=== PATIENT | female | born 1985 | race Caucasian/White ===

== ENCOUNTER 2018-03-31 19:11 | Inpatient (IN) | payer MEDICAID ==
[2018-03-31] MEDS ORDERED: Sodium Chloride 0.9% 1,000 ML IV ONE ×3 (19:40→23:24)
[2018-03-31 20:08] LABS: BASO # 0.1 K/uL (0.0-0.2); BASO % 0.3 % (0.0-2.0); HEMOGLOBIN 11.8 g/dL (11.0-16.0); LYMPH # 0.9 K/uL (1.0-4.3); LYMPH % 3.9 % (20.0-40.0); MEAN CELL VOLUME 81.2 fL (81.0-99.0); MEAN CORPUSCULAR HEMOGLOBIN 27.3 pg (27.0-31.0); MEAN CORPUSCULAR HGB CONC 33.6 g/dL (33.0-37.0); MEAN PLATELET VOLUME 8.4 fL (7.2-11.7); MONO # 1.3 K/uL (0.0-0.8); MONO % 5.7 % (0.0-10.0); NEUT # 20.7 K/uL (1.8-7.0); NEUT % 90.1 % (50.0-75.0); PLATELET COUNT 375 K/uL (130-400); RBC 4.33 Mil/uL (3.80-5.20); RED CELL DISTRIBUTION WIDTH 13.3 % (11.5-14.5)
--- NOTE | 2018-03-31 20:10 | C.PDOC ---
History Of Present Illness 33 year old female presents to the ED for evaluation of nausea, vomiting, and diarrhea for the last 4 days. Reports she vomited x2 today, vomited x2 yesterday, loose stool today and yesterday, is unable to tolerate solid foods, and can only tolerate water and lemon. Patient notes her family had the same meals and no one else is sick with similar symptoms. Denies recent travel, fever, and any other associated symptoms. Time Seen by Provider: 03/31/18 19:35 Chief Complaint (Nursing): Abdominal Pain History Per: Patient History/Exam Limitations: no limitations Onset/Duration Of Symptoms: Days Current Symptoms Are (Timing): Still Present Recent travel outside of the [place]: No Past Medical History Reviewed: Historical Data, Nursing Documentation, Vital Signs Vital Signs: Last Vital Signs Temp 98.4 F 03/31/18 19:16 Pulse 110 H 03/31/18 19:16 Resp 18 03/31/18 19:16 BP 107/74 03/31/18 19:16 Pulse Ox 98 03/31/18 19:16 Surgical History: No Surg Hx Family History: States: Unknown Family Hx - Social History Hx Alcohol Use: No Hx Substance Use: No - Immunization History Hx Tetanus Toxoid Vaccination: No Hx Influenza Vaccination: No Hx Pneumococcal Vaccination: No Review Of Systems Except As Marked, All Systems Reviewed And Found Negative. Constitutional: Negative for: Fever, Chills Gastrointestinal: Positive for: Nausea, Vomiting (x4), Diarrhea Physical Exam - Physical Exam Appears: Non-toxic, Other (no apparent distress) Skin: Normal Color, Warm, Dry Head: Atraumatic, Normacephalic Eye(s): bilateral: PERRL Oral Mucosa: Moist Neck: Normal ROM, Supple Chest: Symmetrical, No Deformity Cardiovascular: Rhythm Regular Respiratory: Other (no acute respiratory distress.) Gastrointestinal/Abdominal: Tenderness (belly is vaguely tender.) Extremity: Normal ROM (x4) Neurological/Psych: Oriented x3, Normal Speech, Normal Motor, Normal Sensation Gait: Steady ED Course And Treatment - Laboratory Results Result Diagrams: 03/31/18 19:57 03/31/18 19:57 Lab Interpretation: Abnormal (total bili 2.3, D. Bili 1.5, indirect bili 0.8, NOT c/w Gilbert's, UA neg,) Urine POC: Negative O2 Sat by Pulse Oximetry: 98 (RA) Pulse Ox Interpretation: Normal Reevaluation Time: 23:16 Reassessment Condition: Improved - Physician Consult Information Outcome Of Conversation: 2330: d/w Dr. Ayala, Hospitalist covering uninsured pts, ok to admit. Medical Decision Making Medical Decision Making: Plan: --Blood sent. --Urinalysis --Urine HCG -Given Pepcid, Toradol, and Zofran. formed stool throughout colon on CT no acute pathology no enteritis, nor excessive liquid stool to suspect infectuous diarrhea probably leukocytosis due to vomiting mild elev LFT's but not propotionally majority of indirect bili's so Gilbert's Syndrome not likely 2330: feels better Defer abx no source and feels better, belly benign now Plan: hydrate overnight and repeat labs in AM Disposition Doctor Will See Patient In The: Hospital Counseled Patient/Family Regarding: Studies Performed, Diagnosis - Disposition Disposition: HOME/ ROUTINE Disposition Time: 23:17 Condition: GOOD Forms: [facility] (Citizen Of [place]) - Clinical Impression Clinical Impression: Abdominal pain, Vomiting, Abnormal liver function test - Scribe Statement The provider has reviewed the documentation as recorded by the Scribe (Stephanie Mills) Provider Attestation: All medical record entries made by the Scribe were at my direction and personally dictated by me. I have reviewed the chart and agree that the record accurately reflects my personal performance of the history, physical exam, medical decision making, and the department course for this patient. I have also personally directed, reviewed, and agree with the discharge instructions and disposition.
[2018-03-31 20:11] LABS: HCG,QUALITATIVE URINE NEGATIVE (NEGATIVE)
[2018-03-31 20:15] LABS: SQUAMOUS EPITHIAL 3 /hpf (0-5); URINE BACTERIA FEW (<OCC); URINE BILIRUBIN NEGATIVE (NEGATIVE); URINE BLOOD 2+ (NEGATIVE); URINE CLARITY Hazy (Clear); URINE COLOR Yellow (YELLOW); URINE GLUCOSE (UA) NORMAL (Normal); URINE LEUKOCYTE ESTERASE 2+ Leu/uL (Negative); URINE PROTEIN 2+ mg/dL (NEGATIVE)
[2018-03-31 20:21] LABS: ALBUMIN 4.4 g/dL (3.5-5.0); BLOOD UREA NITROGEN 10 mg/dL (7-17); CALCIUM 9.5 mg/dl (8.6-10.4); GFR NON-AFRICAN AMERICAN > 60; LIPASE 36 U/L (23-300)
[2018-03-31 20:24] LABS: ALT/SGPT 71 U/L (9-52); AST/SGOT 59 U/L (14-36)
[2018-03-31] MEDS ORDERED: Iodixanol 320 MG/ML 100 ML BOTTLE IV ONE (21:22)
[2018-03-31 21:51] LABS: LYMPHOCYTE 7 % (20-40); MONOCYTE 4 % (0-10); NEUTROPHIL 89 % (50-75); PLATELET CLUMPS PRESENT; TOTAL CELLS COUNTED 100
[2018-03-31 21:54] LABS: PLATELET ESTIMATE NORMAL (NORMAL)
[2018-03-31] MEDS ORDERED: Dextrose 5%/0.9% NS 1,000 ML IV ONE (23:26)
--- NOTE | 2018-03-31 23:39 | CP.PCM.HP ---
<Chloe Simmons - Last Filed: 04/01/18 01:12> History of Present Illness - History of Present Illness History of Present Illness: History and Physical - Hospitalist Service CC: Fevers, Nausea/Vomiting HPI: Patient is a 33 year old female with no significant past medical history who presented to the emergency department with subjective fevers and nausea/vomiting for the past 4 days. Patient states that on Wednesday she started experiencing subjective fevers, 2-3 episodes of NBNB vomiting every day. She has been taking paracetamol 500mg at home for the fevers. Epigastric/periumbilical pain started after onset of vomiting. She states that abdominal pain is intermittent in nature and is non-radiating. Pain was 6/10 on pain scale. She was last ate food on Wednesday night when she had godinez and bread. Since then she has only been able to tolerate lemon and water. Patient reports last episode of emesis was 5pm this afternoon. She denies any sick contacts or recent travel. She also reports having 1 episode of watery diarrhea today that was a small amount. Stools prior to this were normal. Currently she denies any fevers, chills, headaches, dizziness, weakness, body aches, changes in vision, chest pain, palpitations, sob, abdominal pain, urinary symptoms, blood in stool, changes in diet. 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 Family History: Mother - Heart problems, CHF; Father - Heart problems, CAD with angioplasty CAR HOP: , LMP 03/03/18, periods are regular and last 3 days, denies any history of fibroids/ovarian cysts Present on Admission - Present on Admission Any Indicators Present on Admission: No Past Patient History - Past Social History Smoking Status: Never Smoked - PSYCHIATRIC Hx Substance Use: No - SURGICAL HISTORY Hx Surgeries: No Meds Allergies/Adverse Reactions: Allergies Allergy/AdvReac Type Severity Reaction Status Date / Time No Known Allergies Allergy Unverified 03/31/18 19:21 Physical Exam - Constitutional Appears: Well, No Acute Distress - Head Exam Head Exam: ATRAUMATIC, NORMAL INSPECTION, NORMOCEPHALIC - Eye Exam Eye Exam: EOMI, Normal appearance. absent: Scleral icterus Pupil Exam: NORMAL ACCOMODATION - ENT Exam ENT Exam: Mucous Membranes Moist - Respiratory Exam Respiratory Exam: Clear to Auscultation Bilateral, NORMAL BREATHING PATTERN. absent: Rales, Rhonchi, Wheezes - Cardiovascular Exam Cardiovascular Exam: REGULAR RHYTHM, +S1, +S2 - GI/Abdominal Exam GI & Abdominal Exam: Normal Bowel Sounds, Soft. absent: Guarding, Rebound, Rigid Additional comments: Mild tenderness in the RUQ, epigastric/periumbilical region to palpation - Extremities Exam Extremities exam: Positive for: full ROM, normal inspection, pedal pulses present. Negative for: calf tenderness - Back Exam Back exam: NORMAL INSPECTION. absent: CVA tenderness (L), CVA tenderness (R) - Neurological Exam Neurological exam: Alert, Oriented x3 - Psychiatric Exam Psychiatric exam: Normal Affect, Normal Mood - Skin Skin Exam: Dry, Normal Color, Warm Results - Vital Signs Recent Vital Signs: Last Vital Signs Temp 98.0 F 03/31/18 23:31 Pulse 77 03/31/18 23:31 Resp 16 03/31/18 23:31 BP 108/65 03/31/18 23:31 Pulse Ox 98 03/31/18 23:33 - Labs Result Diagrams: 03/31/18 19:57 03/31/18 19:57 Labs: Laboratory Results - last 24 hr 03/31/18 03/31/18 03/31/18 19:57 19:57 19:57 WBC 23.0 H RBC 4.33 Hgb 11.8 Hct 35.2 MCV 81.2 MCH 27.3 MCHC 33.6 RDW 13.3 Plt Count 375 MPV 8.4 Neut % (Auto) 90.1 H Lymph % (Auto) 3.9 L Martin % (Auto) 5.7 Eos % (Auto) 0.0 Baso % (Auto) 0.3 Neut # (Auto) 20.7 H Lymph # (Auto) 0.9 L Martin # (Auto) 1.3 H Eos # (Auto) 0.0 Baso # (Auto) 0.1 Neutrophils % (Manual) 89 H Lymphocytes % (Manual) 7 L Monocytes % (Manual) 4 Platelet Estimate Normal Plt Clumps, EDTA Present Sodium 137 Potassium 4.1 Chloride 100 Carbon Dioxide 22 Anion Gap 20 BUN 10 Creatinine 1.0 Est GFR ( Amer) > 60 Est GFR (Non-Af Amer) > 60 Random Glucose 123 H Calcium 9.5 Total Bilirubin 2.3 H Direct Bilirubin AST 59 H ALT 71 H Alkaline Phosphatase 213 H Total Protein 8.7 H Albumin 4.4 Globulin 4.3 H Albumin/Globulin Ratio 1.0 Lipase 36 Urine Color Yellow Urine Clarity Hazy Urine pH 6.0 Ur Specific [place] 1.008 Urine Protein 2+ H Urine Glucose (UA) Normal Urine Ketones Negative Urine Blood 2+ H Urine Nitrate Negative Urine Bilirubin Negative Urine Urobilinogen 4.0 H Ur Leukocyte Esterase 2+ H Urine WBC (Auto) 15 H Urine RBC (Auto) 14 H Ur Squamous Epith Cells 3 Ur Transition Epith Cell < 1 Urine Bacteria Few H Urine HCG, Qual Negative 03/31/18 22:57 WBC RBC Hgb Hct MCV MCH MCHC RDW Plt Count MPV Neut % (Auto) Lymph % (Auto) Martin % (Auto) Eos % (Auto) Baso % (Auto) Neut # (Auto) Lymph # (Auto) Martin # (Auto) Eos # (Auto) Baso # (Auto) Neutrophils % (Manual) Lymphocytes % (Manual) Monocytes % (Manual) Platelet Estimate Plt Clumps, EDTA Sodium Potassium Chloride Carbon Dioxide Anion Gap BUN Creatinine Est GFR ( Amer) Est GFR (Non-Af Amer) Random Glucose Calcium Total Bilirubin Direct Bilirubin 1.5 H AST ALT Alkaline Phosphatase Total Protein Albumin Globulin Albumin/Globulin Ratio Lipase Urine Color Urine Clarity Urine pH Ur Specific [place] Urine Protein Urine Glucose (UA) Urine Ketones Urine Blood Urine Nitrate Urine Bilirubin Urine Urobilinogen Ur Leukocyte Esterase Urine WBC (Auto) Urine RBC (Auto) Ur Squamous Epith Cells Ur Transition Epith Cell Urine Bacteria Urine HCG, Qual Assessment & Plan - Assessment and Plan (Free Text) Assessment: A/P: Patient is a 33 year old female with no significant past medical history who presents with 4 day history of subjective fevers with multiple episodes nausea/vomiting and 1 episode of watery diarrhea. Intractable Nausea and Vomiting likely due to Gastroenteritis (viral etiology) -Stable, afebrile -Will admit for observation -Continue NS @ 100cc/hr -Continue Pepcid 20mg IVP BID -Zofran 4mg Q6H prn nausea -CT abd/pelvis showed formed stool, no acute pathology, no enteritis, nor excessive liquid stool to suspect infectious diarrhea (official report pending) -Obstructive series completed (official report pending) -In light of elevated bilirubin and epigastric tenderness, we will order gallbladder US -Stool leukocytes, ova/parasites, cultures ordered Leukocytosis -WBC elevated at 23 -Could be reactive -Will monitor off antibiotics at this time and repeat labs tomorrow Abnormal UA -UA showing +2 protein, +2 blood, +2 leukocyte esterase, 15 WBC, 15 RBC -F/U repeat UA and Urine culture GI/DVT ppx: -Pepcid 20mg IVP BID -SCDs Plan discussed with Dr Lucy Simmons DO PGY-2 <Reymundo Ayala - Last Filed: 04/01/18 06:43> Results - Vital Signs Recent Vital Signs: Last Vital Signs Temp 101.5 F H 04/01/18 05:25 Pulse 91 H 04/01/18 01:01 Resp 20 04/01/18 01:01 BP 109/76 04/01/18 01:01 Pulse Ox 99 04/01/18 01:01 - Labs Result Diagrams: 03/31/18 19:57 03/31/18 19:57 Labs: Laboratory Results - last 24 hr 03/31/18 03/31/18 03/31/18 19:57 19:57 19:57 WBC 23.0 H RBC 4.33 Hgb 11.8 Hct 35.2 MCV 81.2 MCH 27.3 MCHC 33.6 RDW 13.3 Plt Count 375 MPV 8.4 Neut % (Auto) 90.1 H Lymph % (Auto) 3.9 L Martin % (Auto) 5.7 Eos % (Auto) 0.0 Baso % (Auto) 0.3 Neut # (Auto) 20.7 H Lymph # (Auto) 0.9 L Martin # (Auto) 1.3 H Eos # (Auto) 0.0 Baso # (Auto) 0.1 Neutrophils % (Manual) 89 H Lymphocytes % (Manual) 7 L Monocytes % (Manual) 4 Platelet Estimate Normal Plt Clumps, EDTA Present Sodium 137 Potassium 4.1 Chloride 100 Carbon Dioxide 22 Anion Gap 20 BUN 10 Creatinine 1.0 Est GFR ( Amer) > 60 Est GFR (Non-Af Amer) > 60 Random Glucose 123 H Calcium 9.5 Total Bilirubin 2.3 H Direct Bilirubin AST 59 H ALT 71 H Alkaline Phosphatase 213 H Total Protein 8.7 H Albumin 4.4 Globulin 4.3 H Albumin/Globulin Ratio 1.0 Lipase 36 Urine Color Yellow Urine Clarity Hazy Urine pH 6.0 Ur Specific [place] 1.008 Urine Protein 2+ H Urine Glucose (UA) Normal Urine Ketones Negative Urine Blood 2+ H Urine Nitrate Negative Urine Bilirubin Negative Urine Urobilinogen 4.0 H Ur Leukocyte Esterase 2+ H Urine WBC (Auto) 15 H Urine RBC (Auto) 14 H Ur Squamous Epith Cells 3 Ur Transition Epith Cell < 1 Urine Bacteria Few H Urine HCG, Qual Negative 03/31/18 22:57 WBC RBC Hgb Hct MCV MCH MCHC RDW Plt Count MPV Neut % (Auto) Lymph % (Auto) Martin % (Auto) Eos % (Auto) Baso % (Auto) Neut # (Auto) Lymph # (Auto) Martin # (Auto) Eos # (Auto) Baso # (Auto) Neutrophils % (Manual) Lymphocytes % (Manual) Monocytes % (Manual) Platelet Estimate Plt Clumps, EDTA Sodium Potassium Chloride Carbon Dioxide Anion Gap BUN Creatinine Est GFR ( Amer) Est GFR (Non-Af Amer) Random Glucose Calcium Total Bilirubin Direct Bilirubin 1.5 H AST ALT Alkaline Phosphatase Total Protein Albumin Globulin Albumin/Globulin Ratio Lipase Urine Color Urine Clarity Urine pH Ur Specific [place] Urine Protein Urine Glucose (UA) Urine Ketones Urine Blood Urine Nitrate Urine Bilirubin Urine Urobilinogen Ur Leukocyte Esterase Urine WBC (Auto) Urine RBC (Auto) Ur Squamous Epith Cells Ur Transition Epith Cell Urine Bacteria Urine HCG, Qual Assessment & Plan - Date & Time Date: 04/01/18 (I have seen and examined the patient. I agree with the findings and plan of care as documented by Dr. Simmons. Patient with Nausea and vomiting. Leukocytosis. Possibly secondary to gastroenteritis. Follow up official read for CT and obstruction series. Check gallbladder ultrasound. Symptomatic treatment. Monitor for acute changes.) Time: 06:42 Attending/Attestation - Attestation I have personally seen and examined this patient.: Yes I have fully participated in the care of the patient.: Yes I have reviewed all pertinent clinical information: Yes
[2018-04-01] MEDS: Sodium Chloride 0.9% 1,000 ML IV SCH ×3 (00:40→19:00)
[2018-04-01 01:02] VITALS: RESP 20
[2018-04-01 07:25] LABS: BASO % 0.1 % (0.0-2.0); LYMPH # 0.7 K/uL (1.0-4.3); LYMPH % 4.1 % (20.0-40.0); MEAN CELL VOLUME 79.6 fL (81.0-99.0); MEAN CORPUSCULAR HEMOGLOBIN 27.3 pg (27.0-31.0); MEAN CORPUSCULAR HGB CONC 34.3 g/dL (33.0-37.0); MONO # 0.9 K/uL (0.0-0.8); MONO % 4.9 % (0.0-10.0); NEUT # 15.8 K/uL (1.8-7.0); NEUT % 90.9 % (50.0-75.0); PLATELET COUNT 301 K/uL (130-400); RBC 3.67 Mil/uL (3.80-5.20); RED CELL DISTRIBUTION WIDTH 13.5 % (11.5-14.5); WHITE BLOOD COUNT 17.3 K/uL (4.8-10.8)
[2018-04-01 07:40] LABS: ALB/GLOB RATIO 0.9 (1.0-2.1); ALBUMIN 3.1 g/dL (3.5-5.0); ALT/SGPT 48 U/L (9-52); AST/SGOT 20 U/L (14-36); BLOOD UREA NITROGEN 10 mg/dL (7-17); CALCIUM 8.3 mg/dl (8.6-10.4); GFR NON-AFRICAN AMERICAN > 60
[2018-04-01 08:32] LABS: LYMPHOCYTE 6 % (20-40); MONOCYTE 3 % (0-10); NEUTROPHIL 91 % (50-75); PLATELET ESTIMATE NORMAL (NORMAL); TOTAL CELLS COUNTED 100
[2018-04-01 08:33] LABS: ANISOCYTOSIS SLIGHT; HYPOCHROMIC SLIGHT; POIKILOCYTOSIS SLIGHT
[2018-04-01] MEDS ORDERED: Potassium & Sodium Phosphate PO ONE (10:00)
[2018-04-01] MEDS ORDERED: Enoxaparin 40 mg Syringe SC SCH (10:00)
[2018-04-01 11:13] LABS: VENOUS BLOOD GAS BASE EXCESS -4.5 mmol/L (0.0-2.0); VENOUS BLOOD GAS PCO2 31 mmHg (40-60); VENOUS BLOOD GAS PO2 51 mm/Hg (30-55)
--- NOTE | 2018-04-01 11:14 | US ---
Date of service: 04/01/2018 HISTORY: abdominal pain, N/V COMPARISON: CT abdomen and pelvis with IV contrast performed 03/31/18 TECHNIQUE: Sonographic evaluation of the right upper quadrant of the abdomen. FINDINGS: LIVER: Measures 14.7 cm in length and appears unremarkable. No focal hepatic mass identified. Main portal vein appears patent with normal directional flow. No intrahepatic bile duct dilatation. GALLBLADDER: No gallstones. No gallbladder wall thickening or pericholecystic edema. Negative sonographic Oliver's sign as assessed by the customer care voice consultant. COMMON BILE DUCT: Measures 3 mm. PANCREAS: Not well-visualized. RIGHT KIDNEY: Measures 11.2 x 5.0 x 4.8 cm. AORTA: Limited visualization appears grossly unremarkable. IVC: Limited visualization appears grossly unremarkable. OTHER FINDINGS: None . IMPRESSION: Unremarkable right upper quadrant ultrasound with findings as above.
--- NOTE | 2018-04-01 11:35 | CT ---
Date of service: 03/31/2018 PROCEDURE: CT Abdomen and Pelvis with contrast HISTORY: diarrhea, colitis COMPARISON: Gallbladder ultrasound performed 04/01/18 TECHNIQUE: Contrast dose: 100 mL Visipaque IV Radiation dose: Total exam DLP = 215.72 mGy-cm. This CT exam was performed using one or more of the following dose reduction techniques: Automated exposure control, adjustment of the mA and/or kV according to patient size, and/or use of iterative reconstruction technique. FINDINGS: LOWER THORAX: No visible consolidation, pleural effusion, or pneumothorax. LIVER: Mild hypodensity adjacent to the falciform ligament, likely focal fat. GALLBLADDER AND BILE DUCTS: Unremarkable. PANCREAS: Unremarkable. SPLEEN: Unremarkable. ADRENALS: Unremarkable. KIDNEYS AND URETERS: Bilateral regions of diminished enhancement are identified involving bilateral upper poles as well as left lower pole kidney which may reflect pyelonephritis. Differential considerations include sequela of vascular insults/infarct or infiltrating process. No hydronephrosis or obstructing calculus identified. VASCULATURE: No aortic aneurysm. BOWEL: Stomach is nondistended. Lack of oral contrast limits evaluation for bowel pathology. Bowel loops appear within normal limits of caliber without evidence of obstruction. APPENDIX: The appendix appears within normal limits of caliber. No secondary signs of acute appendicitis. PERITONEUM: No significant free fluid. No definite free air. LYMPH NODES: No bulky adenopathy identified. BLADDER: Mild urinary bladder wall thickening. Recommend correlation with urinalysis. REPRODUCTIVE: Unremarkable. BONES: No acute osseous abnormality is detected. OTHER FINDINGS: None. IMPRESSION: Bilateral regions of diminished enhancement are identified involving bilateral upper poles as well as left lower pole kidney which may reflect pyelonephritis. Differential considerations include sequela of vascular insults/infarct or infiltrating process. Mild urinary bladder wall thickening. Recommend correlation with urinalysis. Preliminary impression was provided by [employer]. Findings discussed with MARVA Hicks on 04/01/18 at 11:27 a.m.
--- NOTE | 2018-04-01 11:42 | RAD ---
Date of service: 03/31/2018 PROCEDURE: Radiographs of the chest and abdomen (obstructive series) HISTORY: abd pain COMPARISON: CT abdomen and pelvis with contrast performed 03/31/18 TECHNIQUE: AP radiograph of the chest, with upright and supine radiographs of the abdomen. FINDINGS: CHEST: Heart size appears within normal limits. No focal consolidation, significant pleural effusion, or definite pneumothorax identified. Please note that chest x-ray has limited sensitivity for the detection of pulmonary masses. ABDOMEN AND PELVIS: Bowel loops appear within normal limits of caliber without evidence of obstruction. No definite free air. No acute osseous abnormality is detected. IMPRESSION: No focal consolidation. Nonobstructive bowel gas pattern.
[2018-04-01] MEDS: Potassium & Sodium Phosphate PO SCH ×2 (11:54→17:30)
[2018-04-01] MEDS: metroNIDAZOLE IV 500 mg/100 ml 500 MG/100 ML BAG IVPB SCH ×2 (12:18→19:12)
--- NOTE | 2018-04-01 12:39 | RAD ---
Date of service: 04/01/2018 HISTORY: r/o infiltrate COMPARISON: No prior. FINDINGS: LUNGS: No active pulmonary disease. PLEURA: No significant pleural effusion identified, no pneumothorax apparent. CARDIOVASCULAR: Normal. OSSEOUS STRUCTURES: No significant abnormalities. VISUALIZED UPPER ABDOMEN: Normal. OTHER FINDINGS: None. IMPRESSION: No active disease.
[2018-04-01 12:59] LABS: HEPATITIS B SURFACE AG Negative (NEGATIVE)
[2018-04-01 13:04] LABS: HEPATITIS A IGM NEGATIVE (NEGATIVE); HEPATITIS B CORE AB NEGATIVE (NEGATIVE)
[2018-04-01 13:16] LABS: HEPATITIS C ANTIBODY NEGATIVE (NEGATIVE)
--- NOTE | 2018-04-01 13:44 | CP.PCM.CON ---
History of Present Illness - History of Present Illness History of Present Illness: GI service consult CC: fever/vomiting HPI: previously healthy 33 year old woman presents with 3 day history of vomiting and fevers. Denies diarrhea or blood in stool. Denies dysuria, myalgias, arthralgias. Symptoms began [address] and sonogram were essentially unremarkable. patient feels improved today.t had eaten food from outside the home. No other contacts got ill. Developed upper abdominal pain after vomiting excessively. LFTs were initially elevated, and are trending to normal. Review of Systems - Constitutional Constitutional: Fever - EENT Eyes: absent: Change in Vision - Cardiovascular Cardiovascular: absent: Chest Pain - Respiratory Respiratory: absent: Cough, Dyspnea - Gastrointestinal Gastrointestinal: Abdominal Pain, Vomiting. absent: Loose Stools, Melena - Genitourinary Genitourinary: absent: Change in Urinary Stream, Difficulty Urinating, Dysuria, Urinary Frequency - Musculoskeletal Musculoskeletal: absent: Back Pain, Muscle Cramps - Integumentary Integumentary: absent: Jaundice - Neurological Neurological: absent: Weakness - Psychiatric Psychiatric: absent: Mood Swings Past Patient History - Past Medical History & Family History Past Medical History?: No - Past Social History Smoking Status: Never Smoked - CARDIAC Hx Cardiac Disorders: No - PULMONARY Hx Respiratory Disorders: No - NEUROLOGICAL Hx Neurological Disorder: No - HEENT Hx HEENT Problems: No - RENAL Hx Chronic Kidney Disease: No - ENDOCRINE/METABOLIC Hx Endocrine Disorders: No - HEMATOLOGICAL/ONCOLOGICAL Hx Blood Disorders: No - INTEGUMENTARY Hx Dermatological Problems: No - MUSCULOSKELETAL/RHEUMATOLOGICAL Hx Musculoskeletal Disorders: No Hx Falls: No - GASTROINTESTINAL Hx Gastrointestinal Disorders: No - GENITOURINARY/GYNECOLOGICAL Hx Genitourinary Disorders: No - PSYCHIATRIC Hx Substance Use: No - SURGICAL HISTORY Hx Surgeries: No - ANESTHESIA Hx Anesthesia: Yes Hx Anesthesia Reactions: No Meds Allergies/Adverse Reactions: Allergies Allergy/AdvReac Type Severity Reaction Status Date / Time No Known Allergies Allergy Unverified 03/31/18 19:21 - Medications Medications: Current Medications Famotidine (Pepcid) 20 mg IVP BID FOR[facility], 1928–1983 Last Admin: 04/01/18 09:50 Dose: 20 mg Sodium Chloride (Sodium Chloride 0.9%) 1,000 mls @ 100 mls/hr IV .Q10H FOR[facility]LY [facility], [facility]–1983 Last Admin: 04/01/18 09:50 Dose: 100 mls/hr Piperacillin Sod/Tazobactam (Sod 3.375 gm/ Sodium Chloride) 100 mls @ 200 mls/hr IVPB Q6H YRN; Protocol Metronidazole (Flagyl) 500 mg in 100 mls @ 100 mls/hr IVPB Q8H YRN; Protocol Last Admin: 04/01/18 12:18 Dose: 100 mls/hr Ondansetron HCl (Zofran Inj) 4 mg IVP Q6H PRN PRN Reason: Nausea/Vomiting Last Admin: 04/01/18 09:54 Dose: 4 mg Pneumococcal Polyvalent Vaccine (Pneumovax 23 Vaccine) 0.5 ml IM .ONCE ONE Stop: 04/03/18 10:01 Potassium Phos/Sodium Phos (Neutra-Phos) 1 pkt PO TIDAC YRN Stop: 04/02/18 07:31 Last Admin: 04/01/18 11:54 Dose: 1 pkt Physical Exam - Constitutional Appears: Well - Head Exam Head Exam: NORMOCEPHALIC - Eye Exam Eye Exam: absent: Scleral icterus - ENT Exam ENT Exam: Mucous Membranes Moist - Neck Exam Neck exam: Positive for: Normal Inspection - Respiratory Exam Respiratory Exam: Clear to Auscultation Bilateral - Cardiovascular Exam Cardiovascular Exam: REGULAR RHYTHM - GI/Abdominal Exam GI & Abdominal Exam: Soft. absent: Guarding, Mass, Organomegaly, Rebound, Tenderness - Rectal Exam Rectal Exam: Deferred - Extremities Exam Extremities exam: Positive for: normal inspection - Back Exam Back exam: absent: CVA tenderness (L), CVA tenderness (R), NORMAL INSPECTION, paraspinal tenderness - Neurological Exam Neurological exam: Alert, Oriented x3 - Psychiatric Exam Psychiatric exam: Normal Affect, Normal Mood - Skin Skin Exam: Normal Color Results - Vital Signs Recent Vital Signs: Last Vital Signs Temp 98.0 F 04/01/18 08:00 Pulse 90 04/01/18 08:00 Resp 20 04/01/18 08:00 BP 95/64 L 04/01/18 08:00 Pulse Ox 97 04/01/18 08:00 - Labs Result Diagrams: 04/01/18 06:51 04/01/18 06:51 Labs: Laboratory Results - last 24 hr 03/31/18 03/31/18 03/31/18 19:57 19:57 19:57 WBC 23.0 H RBC 4.33 Hgb 11.8 Hct 35.2 MCV 81.2 MCH 27.3 MCHC 33.6 RDW 13.3 Plt Count 375 MPV 8.4 Neut % (Auto) 90.1 H Lymph % (Auto) 3.9 L [place] % (Auto) 5.7 Eos % (Auto) 0.0 Baso % (Auto) 0.3 Neut # (Auto) 20.7 H Lymph # (Auto) 0.9 L [place] # (Auto) 1.3 H Eos # (Auto) 0.0 Baso # (Auto) 0.1 Neutrophils % (Manual) 89 H Lymphocytes % (Manual) 7 L Monocytes % (Manual) 4 Platelet Estimate Normal Plt Clumps, EDTA Present Hypochromasia (manual) Poikilocytosis (manual Anisocytosis (manual) pO2 VBG pH VBG pCO2 VBG HCO3 VBG Total CO2 VBG O2 Sat (Calc) VBG Base Excess VBG Potassium Glucose Lactate Sodium 137 Potassium 4.1 Chloride 100 Carbon Dioxide 22 Anion Gap 20 BUN 10 Creatinine 1.0 Est GFR ( Amer) > 60 Est GFR (Non-Af Amer) > 60 Random Glucose 123 H Calcium 9.5 Phosphorus Magnesium Total Bilirubin 2.3 H Direct Bilirubin AST 59 H ALT 71 H Alkaline Phosphatase 213 H Total Protein 8.7 H Albumin 4.4 Globulin 4.3 H Albumin/Globulin Ratio 1.0 Lipase 36 Procalcitonin Venous Blood Potassium Urine Color Yellow Urine Clarity Hazy Urine pH 6.0 Ur Specific [place] 1.008 Urine Protein 2+ H Urine Glucose (UA) Normal Urine Ketones Negative Urine Blood 2+ H Urine Nitrate Negative Urine Bilirubin Negative Urine Urobilinogen 4.0 H Ur Leukocyte Esterase 2+ H Urine WBC (Auto) 15 H Urine RBC (Auto) 14 H Ur Squamous Epith Cells 3 Ur Transition Epith Cell < 1 Urine Bacteria Few H Urine HCG, Qual Negative Acetaminophen Hepatitis A IgM Ab Hep Bs Antigen Hep B Core IgM Ab Hepatitis C Antibody HIV 1&2 Antibody Screen 03/31/18 04/01/18 04/01/18 22:57 06:51 06:51 WBC 17.3 H RBC 3.67 L Hgb 10.0 L Hct 29.2 L MCV 79.6 L MCH 27.3 MCHC 34.3 RDW 13.5 Plt Count 301 MPV 9.0 Neut % (Auto) 90.9 H Lymph % (Auto) 4.1 L [place] % (Auto) 4.9 Eos % (Auto) 0.0 Baso % (Auto) 0.1 Neut # (Auto) 15.8 H Lymph # (Auto) 0.7 L [place] # (Auto) 0.9 H Eos # (Auto) 0.0 Baso # (Auto) 0.0 Neutrophils % (Manual) 91 H Lymphocytes % (Manual) 6 L Monocytes % (Manual) 3 Platelet Estimate Normal Plt Clumps, EDTA Hypochromasia (manual) Slight Poikilocytosis (manual Slight Anisocytosis (manual) Slight pO2 VBG pH VBG pCO2 VBG HCO3 VBG Total CO2 VBG O2 Sat (Calc) VBG Base Excess VBG Potassium Glucose Lactate Sodium 140 Potassium 3.6 Chloride 109 H Carbon Dioxide 18 L Anion Gap 17 BUN 10 Creatinine 0.9 Est GFR ( Amer) > 60 Est GFR (Non-Af Amer) > 60 Random Glucose 98 Calcium 8.3 L Phosphorus 1.0 L* Magnesium 2.2 Total Bilirubin 1.1 Direct Bilirubin 1.5 H AST 20 ALT 48 Alkaline Phosphatase 153 H D Total Protein 6.4 Albumin 3.1 L D Globulin 3.3 Albumin/Globulin Ratio 0.9 L Lipase Procalcitonin Venous Blood Potassium Urine Color Urine Clarity Urine pH Ur Specific [place] Urine Protein Urine Glucose (UA) Urine Ketones Urine Blood Urine Nitrate Urine Bilirubin Urine Urobilinogen Ur Leukocyte Esterase Urine WBC (Auto) Urine RBC (Auto) Ur Squamous Epith Cells Ur Transition Epith Cell Urine Bacteria Urine HCG, Qual Acetaminophen Hepatitis A IgM Ab Hep Bs Antigen Hep B Core IgM Ab Hepatitis C Antibody HIV 1&2 Antibody Screen 04/01/18 04/01/18 04/01/18 06:51 11:08 11:39 WBC RBC Hgb Hct MCV MCH MCHC RDW Plt Count MPV Neut % (Auto) Lymph % (Auto) [place] % (Auto) Eos % (Auto) Baso % (Auto) Neut # (Auto) Lymph # (Auto) [place] # (Auto) Eos # (Auto) Baso # (Auto) Neutrophils % (Manual) Lymphocytes % (Manual) Monocytes % (Manual) Platelet Estimate Plt Clumps, EDTA Hypochromasia (manual) Poikilocytosis (manual Anisocytosis (manual) pO2 51 VBG pH 7.40 VBG pCO2 31 L VBG HCO3 21.1 VBG Total CO2 20.2 L VBG O2 Sat (Calc) 92.5 H VBG Base Excess -4.5 L VBG Potassium 3.5 L Glucose 95 Lactate 0.8 Sodium 141.0 Potassium Chloride 115.0 H Carbon Dioxide Anion Gap BUN Creatinine Est GFR ( Amer) Est GFR (Non-Af Amer) Random Glucose Calcium Phosphorus Magnesium Total Bilirubin Direct Bilirubin AST ALT Alkaline Phosphatase Total Protein Albumin Globulin Albumin/Globulin Ratio Lipase Procalcitonin 12.85 H Venous Blood Potassium 3.5 L Urine Color Urine Clarity Urine pH Ur Specific [place] Urine Protein Urine Glucose (UA) Urine Ketones Urine Blood Urine Nitrate Urine Bilirubin Urine Urobilinogen Ur Leukocyte Esterase Urine WBC (Auto) Urine RBC (Auto) Ur Squamous Epith Cells Ur Transition Epith Cell Urine Bacteria Urine HCG, Qual Acetaminophen Hepatitis A IgM Ab Negative Hep Bs Antigen Negative Hep B Core IgM Ab Negative Hepatitis C Antibody Negative HIV 1&2 Antibody Screen 04/01/18 04/01/18 11:39 11:39 WBC RBC Hgb Hct MCV MCH MCHC RDW Plt Count MPV Neut % (Auto) Lymph % (Auto) [place] % (Auto) Eos % (Auto) Baso % (Auto) Neut # (Auto) Lymph # (Auto) [place] # (Auto) Eos # (Auto) Baso # (Auto) Neutrophils % (Manual) Lymphocytes % (Manual) Monocytes % (Manual) Platelet Estimate Plt Clumps, EDTA Hypochromasia (manual) Poikilocytosis (manual Anisocytosis (manual) pO2 VBG pH VBG pCO2 VBG HCO3 VBG Total CO2 VBG O2 Sat (Calc) VBG Base Excess VBG Potassium Glucose Lactate Sodium Potassium Chloride Carbon Dioxide Anion Gap BUN Creatinine Est GFR ( Amer) Est GFR (Non-Af Amer) Random Glucose Calcium Phosphorus Magnesium Total Bilirubin Direct Bilirubin AST ALT Alkaline Phosphatase Total Protein Albumin Globulin Albumin/Globulin Ratio Lipase Procalcitonin Venous Blood Potassium Urine Color Urine Clarity Urine pH Ur Specific [place] Urine Protein Urine Glucose (UA) Urine Ketones Urine Blood Urine Nitrate Urine Bilirubin Urine Urobilinogen Ur Leukocyte Esterase Urine WBC (Auto) Urine RBC (Auto) Ur Squamous Epith Cells Ur Transition Epith Cell Urine Bacteria Urine HCG, Qual Acetaminophen < 10.0 L Hepatitis A IgM Ab Hep Bs Antigen Hep B Core IgM Ab Hepatitis C Antibody HIV 1&2 Antibody Screen Negative Assessment & Plan (1) Gastroenteritis Assessment and Plan: Check stool studies IV hydration Will follow Status: Acute (2) Abnormal liver function test Assessment and Plan: Due to underlying gastroenteritis most likely. Gradual resolution is anticipated. Acute Hepatitis profile negative Status: Acute - Date & Time Date: 04/01/18 Time: 13:57
[2018-04-01] MEDS: Piperacillin/Tazobact 3.375 GM in Sodium Chloride 100 ML IVPB SCH ×2 (14:06→17:32)
--- NOTE | 2018-04-01 21:23 | CP.PCM.PN ---
<Adolfo Dominguez - Last Filed: 04/01/18 21:23> Subjective - Date & Time of Evaluation Date of Evaluation: 04/01/18 Time of Evaluation: 09:15 - Subjective Subjective: Medicine Progress Note for Hospitalist Service Pt seen and examined at bedside this am. Denies any acute complaints, resting comfortably in bed. Reports sleeping well overnight. Denies fever/chills. Denies further episodes of nausea/vomiting since admission. Denies suprapubic pain, low back pain, dysuria, urinary frequency, burning with urination, abd pain, or ot her symptoms. Has been able to tolerate water without concerns. No acute events reported overnight. Objective - Vital Signs/Intake and Output Vital Signs (last 24 hours): Temp Pulse Resp BP Pulse Ox 98.0 F 110 H 20 110/77 99 04/01/18 16:24 04/01/18 15:00 04/01/18 15:00 04/01/18 15:00 04/01/18 15:00 - Medications Medications: Current Medications Acetaminophen (Tylenol 325mg Tab) 650 mg PO Q4H PRN PRN Reason: Fever >100.4 F Last Admin: 04/01/18 15:24 Dose: 650 mg Famotidine (Pepcid) 20 mg IVP BID YRN Last Admin: 04/01/18 17:30 Dose: 20 mg Sodium Chloride (Sodium Chloride 0.9%) 1,000 mls @ 100 mls/hr IV .Q10H YRN Last Admin: 04/01/18 09:50 Dose: 100 mls/hr Piperacillin Sod/Tazobactam (Sod 3.375 gm/ Sodium Chloride) 100 mls @ 200 mls/hr IVPB Q6H YRN; Protocol Last Admin: 04/01/18 17:32 Dose: 200 mls/hr Ondansetron HCl (Zofran Inj) 4 mg IVP Q6H PRN PRN Reason: Nausea/Vomiting Last Admin: 04/01/18 15:29 Dose: 4 mg Pneumococcal Polyvalent Vaccine (Pneumovax 23 Vaccine) 0.5 ml IM .ONCE ONE Stop: 04/03/18 10:01 Potassium Phos/Sodium Phos (Neutra-Phos) 1 pkt PO TIDAC YRN Stop: 04/02/18 07:31 Last Admin: 04/01/18 17:30 Dose: 1 pkt - Labs Labs: 04/01/18 06:51 04/01/18 06:51 - Constitutional Appears: Non-toxic, No Acute Distress, Younger Than Stated Age - Head Exam Head Exam: ATRAUMATIC, NORMOCEPHALIC - Eye Exam Eye Exam: EOMI, Normal appearance, PERRL - ENT Exam ENT Exam: Mucous Membranes Moist - Neck Exam Neck Exam: Full ROM, Normal Inspection. absent: Lymphadenopathy - Respiratory Exam Respiratory Exam: Clear to Ausculation Bilateral, NORMAL BREATHING PATTERN. absent: Rales, Rhonchi, Wheezes, Respiratory Distress - Cardiovascular Exam Cardiovascular Exam: REGULAR RHYTHM, +S1, +S2. absent: Gallop, Rubs, Murmur - GI/Abdominal Exam GI & Abdominal Exam: Soft, Normal Bowel Sounds. absent: Distended, Firm, Guarding, Rigid, Tenderness, Organomegaly, Rebound Additional comments: Negative CVA tenderness b/l, no suprapubic tenderness - Extremities Exam Extremities Exam: Full ROM, Normal Capillary Refill, Normal Inspection. absent: Calf Tenderness, Joint Swelling, Pedal Edema - Back Exam Back Exam: Full ROM. absent: CVA tenderness (L), CVA tenderness (R) - Neurological Exam Neurological Exam: Alert, Awake, CN II-XII Intact, Oriented x3. absent: Motor Sensory Deficit - Psychiatric Exam Psychiatric exam: Normal Affect, Normal Mood - Skin Skin Exam: Dry, Intact, Normal Color, Warm Assessment and Plan - Assessment and Plan (Free Text) Assessment: 33 female with no significant PMhx admitted for sepsis likely 2/2 bilateral pyelonephritis. Plan: Sepsis 2/2 B/l pyelonephritis Stable, spiking temps, continue to trend Tylenol prn for fevers; LFTs trending down to wnl today C/w IVF hydration Acetaminophen level neg CT abd/pelvis on admission demonstrated B/l pyelonephritis, bladder wall thickening/cystitis RUQ U/s neg for acute findings Abd XR neg for acute findings Started Zosyn 3.375 g q 6 h Elevated bili wnl this am Lipase wnl Hepatitis panel wnl HIV test ordered, f/u results Procalcitonin elevated, f/u repeat level in 48 hrs Leukocytosis trending down to 17 today VBG wnl, pt not acidotic, lactate wnl U/a demonstrated 2+ protein, 2+ blood, 2+ leukocyte esterase, 15 WBC, 15 RBC Urine cx pending Blood cxs pending Pt admitted that she started her menstrual cycle today, currently denies symptoms R/o gastroenteritis as etiology Stool leukocytes, ova/parasites, cxs pending Giardia Ag ordered, f/u results GI consulted (Dr. Marcos), recs appreciated, agrees with current mgmt Hypophosphatemia - Phosphorus level of 1 today, s/p replacement, continue to monitor Diet: liquid, advance as tolerated GI ppx: Pepcid 20 mg IVP bid DVT ppx: SCDs Dispo: Pt being treated for sepsis 2/2 b/l pyelonephritis necessitating inpatient treatment with IV antibiotics, will continue to monitor clinically. Pt seen, examined with, and plan discussed with Dr. Wilson, attending. Adolfo Dominguez DO PGY-1, [employer] Supervisor Pager #[phone] <Norma Wilson V - Last Filed: 04/01/18 22:41> Objective - Vital Signs/Intake and Output Vital Signs (last 24 hours): Temp Pulse Resp BP Pulse Ox 98.0 F 110 H 20 110/77 99 04/01/18 16:24 04/01/18 15:00 04/01/18 15:00 04/01/18 15:00 04/01/18 15:00 - Medications Medications: Current Medications Acetaminophen (Tylenol 325mg Tab) 650 mg PO Q4H PRN PRN Reason: Fever >100.4 F Last Admin: 04/01/18 15:24 Dose: 650 mg Famotidine (Pepcid) 20 mg IVP BID YRN Last Admin: 04/01/18 17:30 Dose: 20 mg Sodium Chloride (Sodium Chloride 0.9%) 1,000 mls @ 100 mls/hr IV .Q10H YRN Last Admin: 04/01/18 09:50 Dose: 100 mls/hr Piperacillin Sod/Tazobactam (Sod 3.375 gm/ Sodium Chloride) 100 mls @ 200 mls/hr IVPB Q6H YRN; Protocol Last Admin: 04/01/18 17:32 Dose: 200 mls/hr Ondansetron HCl (Zofran Inj) 4 mg IVP Q6H PRN PRN Reason: Nausea/Vomiting Last Admin: 04/01/18 15:29 Dose: 4 mg Pneumococcal Polyvalent Vaccine (Pneumovax 23 Vaccine) 0.5 ml IM .ONCE ONE Stop: 04/03/18 10:01 Potassium Phos/Sodium Phos (Neutra-Phos) 1 pkt PO TIDAC YRN Stop: 04/02/18 07:31 Last Admin: 04/01/18 17:30 Dose: 1 pkt - Labs Labs: 04/01/18 06:51 04/01/18 06:51 Attending/Attestation - Attestation I have personally seen and examined this patient.: Yes I have fully participated in the care of the patient.: Yes I have reviewed all pertinent clinical information, including history, physical exam and plan: Yes Notes (Text): Patient seen, examined, and case discussed with medical scientist. patient noted to be febrile, leukocytosis, unclear source of etiology. however there is abnormal UA, elevated procalcitonin for suspected bacterial origin due to sepsis. VBG shock noted for normal lactate; therefore code sepsis was not called. Patient started on Zosyn and Flagyl for antibiotic coverage. CT scan noted for pyleonephritis. f/u cultures. Assessment/Plan 1) Sepsis 2/2 B/l pyelonephritis Assessment/Plan * Stable, spiking temps, continue to trend * Tylenol level less than therapuetic * Tylenol 650mg PO Q4H prn for fevers * C/w NS 100cc/hr * CT abd/pelvis (04/01/18): bilateal regions of diminished enhancement are identified involving upper ples as well as lower pole of kidney reflect pylonephritis. Mild urinary bladder wall thickening. * RUQ U/s neg for acute findings * Abd XR neg for acute findings * Started Zosyn 3.375 g q 6 h (active since 04/01/18) * Procalcitonin elevated, f/u repeat level in 48 hrs * U/a demonstrated 2+ protein, 2+ blood, 2+ leukocyte esterase, 15 WBC, 15 RBC * Urine cx pending * Blood cxs pending * Pt admitted that she started her menstrual cycle today, currently denies symptoms 2) Transaminitis Assessment/Plan * Elevated bili wnl this am * Lipase wnl * Hepatitis panel wnl * HIV test ordered, f/u results 3) Gastroenteritis Assessment/Plan * Dr. Marcos (GI ) on case-->help appreciated * CT abd/pelvis (04/01/18): bilateal regions of diminished enhancement are identified involving upper ples as well as lower pole of kidney reflect pylonephritis. Mild urinary bladder wall thickening. * Stool ova and parasite * Stool culture * Giardia 4) Hypophosphatemia Assessment/Plan * Neutraphos 1 packet PO TIDACC (3 doses) * check phosphorus in AM 5) Elevated bilirubin Assessment/Plan * RUQ US: negative * hepatitis serology negative * HIV negative 6) Prophylactic measure * Diet: liquid, advance as tolerated * GI ppx: Pepcid 20 mg IVP bid * DVT ppx: SCDs * Florastor 250mg PO BID Dispo: Pt being treated for sepsis 2/2 b/l pyelonephritis necessitating inpatient treatment with IV antibiotics, will continue to monitor clinically.
[2018-04-02] MEDS: Piperacillin/Tazobact 3.375 GM in Sodium Chloride 100 ML IVPB SCH ×5 (00:06→23:48)
[2018-04-02] MEDS: Sodium Chloride 0.9% 1,000 ML IV SCH ×2 (05:52→15:45)
[2018-04-02 06:42] LABS: BASO # 0.1 K/uL (0.0-0.2); EOS % 0.1 % (0.0-4.0); HEMOGLOBIN 10.2 g/dL (11.0-16.0); LYMPH # 1.6 K/uL (1.0-4.3); LYMPH % 13.8 % (20.0-40.0); MEAN CELL VOLUME 79.1 fL (81.0-99.0); MEAN CORPUSCULAR HEMOGLOBIN 26.9 pg (27.0-31.0); MEAN PLATELET VOLUME 8.8 fL (7.2-11.7); MONO # 0.9 K/uL (0.0-0.8); MONO % 7.3 % (0.0-10.0); NEUT # 9.2 K/uL (1.8-7.0); NEUT % 77.8 % (50.0-75.0); RBC 3.79 Mil/uL (3.80-5.20); RED CELL DISTRIBUTION WIDTH 13.5 % (11.5-14.5); WHITE BLOOD COUNT 11.8 K/uL (4.8-10.8)
[2018-04-02 06:56] LABS: ALB/GLOB RATIO 0.9 (1.0-2.1); ALBUMIN 3.2 g/dL (3.5-5.0); ALT/SGPT 38 U/L (9-52); AST/SGOT 17 U/L (14-36); BLOOD UREA NITROGEN 8 mg/dL (7-17); CALCIUM 8.3 mg/dl (8.6-10.4); GFR NON-AFRICAN AMERICAN > 60
[2018-04-02] MEDS: Potassium & Sodium Phosphate PO SCH (08:04)
[2018-04-02] MEDS: Saccharomyces Boulardi 250 mg Cap PO SCH ×2 (09:24→17:30)
[2018-04-02] MEDS ORDERED: Potassium Chloride 20 mEq/15 ml LIQ UD PO ONE (10:08)
--- NOTE | 2018-04-02 10:08 | CP.PCM.PN ---
Subjective - Date & Time of Evaluation Date of Evaluation: 04/02/18 Time of Evaluation: 09:00 - Subjective Subjective: Medical Attending Note: Patient seen and examined at bedside. Patient reports mild nausea today but reports tolerating liquids. I did indicate to her that the CT scan is suggesting kidney infection of both kidneys. She did indicate to me this past Wednesday she has kidney pain but denies urinary symptoms. She reports the pain had improved, but she started spiking fevers starting Wednesday with the associated nausea and vomitting. She denies chest pain, denies shortness of breathe, denies abdominal pain, reports nausea, denies vomitting, denies dysuria, denies frequency, denies hematuria. She report she is visiting on visa; her in [place], she was recently in [place] visiting a friend and now in this area visiting friends prior to coming back to [facility]. Objective - Vital Signs/Intake and Output Vital Signs (last 24 hours): Temp Pulse Resp BP Pulse Ox 98.4 F 79 20 121/82 97 04/02/18 07:46 04/02/18 07:46 04/02/18 07:46 04/02/18 07:46 04/02/18 07:46 Intake and Output: 04/02/18 04/02/18 06:59 18:59 Intake Total 2120 Balance 2120 - Medications Medications: Current Medications Acetaminophen (Tylenol 325mg Tab) 650 mg PO Q4H PRN PRN Reason: Fever >100.4 F Last Admin: 04/02/18 00:05 Dose: 650 mg Famotidine (Pepcid) 20 mg IVP BID [facility] Last Admin: 04/02/18 09:24 Dose: 20 mg Sodium Chloride (Sodium Chloride 0.9%) 1,000 mls @ 100 mls/hr IV .Q10H YRN Last Admin: 04/02/18 05:52 Dose: 100 mls/hr Piperacillin Sod/Tazobactam (Sod 3.375 gm/ Sodium Chloride) 100 mls @ 200 mls/hr IVPB Q6H YRN; Protocol Last Admin: 04/02/18 05:50 Dose: 200 mls/hr Ondansetron HCl (Zofran Inj) 4 mg IVP Q6H PRN PRN Reason: Nausea/Vomiting Last Admin: 04/02/18 08:24 Dose: 4 mg Saccharomyces Boulardii (Florastor) 250 mg PO BID YRN Last Admin: 04/02/18 09:24 Dose: 250 mg - Labs Labs: 04/02/18 06:33 04/02/18 06:33 - Constitutional Appears: Non-toxic, No Acute Distress - Head Exam Head Exam: NORMAL INSPECTION - Eye Exam Eye Exam: EOMI - ENT Exam ENT Exam: Mucous Membranes Moist - Respiratory Exam Respiratory Exam: Clear to Ausculation Bilateral, NORMAL BREATHING PATTERN. absent: Rales, Rhonchi, Wheezes - Cardiovascular Exam Cardiovascular Exam: REGULAR RHYTHM, +S1, +S2 - GI/Abdominal Exam GI & Abdominal Exam: Soft, Normal Bowel Sounds. absent: Distended, Firm, Guarding, Rigid, Tenderness, Rebound - Back Exam Back Exam: absent: CVA tenderness (L), CVA tenderness (R), paraspinal tenderness - Neurological Exam Neurological Exam: Alert, Awake, Oriented x3 - Psychiatric Exam Psychiatric exam: Normal Affect, Normal Mood - Skin Skin Exam: Dry, Intact, Normal Color, Warm Assessment and Plan (1) Sepsis Status: Acute (2) Pyelonephritis Status: Acute (3) Abnormal liver function test Status: Acute (4) Gastroenteritis Status: Acute (5) Prophylactic measure Status: Acute Attending/Attestation - Attestation I have personally seen and examined this patient.: Yes I have fully participated in the care of the patient.: Yes I have reviewed all pertinent clinical information, including history, physical exam and plan: Yes Notes (Text): Patient seen, examined, and case discussed with medical assistant cardiology. patient noted to be febrile, leukocytosis, unclear source of etiology on admission; CT scan noting for bilateral pyelonephritis. There is abnormal UA on admission noting for pyuria, hematuria, elevated procalcitonin for suspected bacterial origin due to sepsis. VBG shock noted for normal lactate; therefore code sepsis was not called. Patient started on Zosyn and Flagyl for antibiotic coverage. CT scan noted for pyleonephritis. We have discontinue Flagyl IV given there is a shortage per pharmacy of IV Flagyl and switch PO Flagyl Assessment/Plan 1) Sepsis 2/2 B/l pyelonephritis Assessment/Plan * Stable, spiking temps, continue to trend * Tylenol level less than therapuetic * Tylenol 650mg PO Q6H prn for fevers * C/w NS 100cc/hr * CT abd/pelvis (04/01/18): bilateal regions of diminished enhancement are identified involving upper poles as well as lower pole of kidney reflect pylonephritis. Mild urinary bladder wall thickening. * RUQ U/s neg for acute findings * Abd XR neg for acute findings * Started Zosyn 3.375 g q 6 h (active since 04/01/18) * Procalcitonin elevated * Order for procalcitonin tomorrow * U/a demonstrated 2+ protein, 2+ blood, 2+ leukocyte esterase, 15 WBC, 15 RBC * Urine cx (03/31/18): no growth * Blood cx (04/01/18): no growth for 24 hours X2 * If patient spikes fever, will reculture * Pt admitted that she started her menstrual cycle 04/01/18, currently denies symptoms 2) Transaminitis Assessment/Plan * Elevated bili wnl this am * Lipase wnl * Hepatitis panel wnl * HIV test: negative * hepatitis: negative * Tylenol level: low (took Paracemtol prior to admission) 3) Gastroenteritis Assessment/Plan * Dr. Marcos (GI ) on case-->help appreciated * Noted eaten outside [employer] food * CT abd/pelvis (04/01/18): bilateal regions of diminished enhancement are identified involving upper ples as well as lower pole of kidney reflect pyl onephritis. Mild urinary bladder wall thickening. * Stool ova and parasite: pending * Stool culture: pending * Giardia: pending * Switch to Flagyl 500mg PO Q8H * c/w Zosyn which will cover for gastroenteritis and pyelonephritis 4) Hypophosphatemia Assessment/Plan * Neutraphos 1 packet PO TIDACC (3 doses) completed 04/02/18 * normalized 5) Elevated bilirubin Assessment/Plan * RUQ US: negative * hepatitis serology negative * HIV negative * normalized 6) Prophylactic measure * Diet: liquid, advance as tolerated * GI ppx: Pepcid 20 mg IVP bid * DVT ppx: SCDs * Florastor 250mg PO BID Disposition: Pt being treated for sepsis 2/2 b/l pyelonephritis and gastroenteritis. Patient continue to benefit of IV antibiotic. Will repeat procalcitonin tomorrow and continue to monitor cultures. patient did spike fever overnight. Will need further monitoring in hospital.
--- NOTE | 2018-04-02 13:37 | CP.PCM.PN ---
Subjective - Date & Time of Evaluation Date of Evaluation: 04/02/18 Time of Evaluation: 13:33 - Subjective Subjective: Patient denies having nausea, vomiting, abdominal pain. She had two soft bowel movements today without evidence of blood. Objective - Vital Signs/Intake and Output Vital Signs (last 24 hours): Temp Pulse Resp BP Pulse Ox 98.4 F 79 20 121/82 97 04/02/18 07:46 04/02/18 07:46 04/02/18 07:46 04/02/18 07:46 04/02/18 07:46 Intake and Output: 04/02/18 04/02/18 06:59 18:59 Intake Total 2120 Balance 2120 - Medications Medications: Current Medications Acetaminophen (Tylenol 325mg Tab) 650 mg PO Q6H PRN PRN Reason: Fever >100.4 F Famotidine (Pepcid) 20 mg IVP BID [facility] Last Admin: 04/02/18 09:24 Dose: 20 mg Sodium Chloride (Sodium Chloride 0.9%) 1,000 mls @ 100 mls/hr IV .Q10H YRN Last Admin: 04/02/18 05:52 Dose: 100 mls/hr Piperacillin Sod/Tazobactam (Sod 3.375 gm/ Sodium Chloride) 100 mls @ 200 mls/hr IVPB Q6H YRN; Protocol Last Admin: 04/02/18 11:18 Dose: 200 mls/hr Metronidazole (Flagyl) 500 mg PO Q8 YRN; Protocol Ondansetron HCl (Zofran Inj) 4 mg IVP Q6H PRN PRN Reason: Nausea/Vomiting Last Admin: 04/02/18 08:24 Dose: 4 mg Saccharomyces Boulardii (Florastor) 250 mg PO BID [facility] Last Admin: 04/02/18 09:24 Dose: 250 mg - Labs Labs: 04/02/18 06:33 04/02/18 06:33 - Constitutional Appears: No Acute Distress - Head Exam Head Exam: ATRAUMATIC, NORMOCEPHALIC - Eye Exam Eye Exam: EOMI, PERRL - Neck Exam Neck Exam: absent: Lymphadenopathy, Thyromegaly - Respiratory Exam Respiratory Exam: NORMAL BREATHING PATTERN. absent: Rales, Rhonchi, Wheezes - Cardiovascular Exam Cardiovascular Exam: REGULAR RHYTHM, +S1, +S2. absent: Gallop, Rubs, Murmur - GI/Abdominal Exam GI & Abdominal Exam: Soft, Normal Bowel Sounds. absent: Tenderness, Mass, Organomegaly - Rectal Exam Rectal Exam: Deferred - Extremities Exam Extremities Exam: absent: Calf Tenderness, Pedal Edema Assessment and Plan (1) Abnormal liver function test Assessment & Plan: Liver enzymes continue to improve. Today's values are: AST 17 (was 59 on admission), ALT 38 (71), ALKP 168 (213), TBILI 1.0 (2.3). Will advance diet. Status: Acute
[2018-04-03] MEDS: Sodium Chloride 0.9% 1,000 ML IV SCH (02:00)
[2018-04-03] MEDS: Piperacillin/Tazobact 3.375 GM in Sodium Chloride 100 ML IVPB SCH ×4 (06:07→23:39)
[2018-04-03 08:53] LABS: BASO # 0.1 K/uL (0.0-0.2); BASO % 0.6 % (0.0-2.0); EOS % 0.4 % (0.0-4.0); HEMOGLOBIN 10.6 g/dL (11.0-16.0); LYMPH # 1.6 K/uL (1.0-4.3); LYMPH % 16.3 % (20.0-40.0); MEAN CELL VOLUME 79.5 fL (81.0-99.0); MEAN CORPUSCULAR HGB CONC 33.9 g/dL (33.0-37.0); MEAN PLATELET VOLUME 8.9 fL (7.2-11.7); MONO # 1.3 K/uL (0.0-0.8); MONO % 13.2 % (0.0-10.0); NEUT # 6.7 K/uL (1.8-7.0); NEUT % 69.5 % (50.0-75.0); RBC 3.92 Mil/uL (3.80-5.20); RED CELL DISTRIBUTION WIDTH 13.7 % (11.5-14.5); WHITE BLOOD COUNT 9.7 K/uL (4.8-10.8)
[2018-04-03 09:09] LABS: ALBUMIN 3.2 g/dL (3.5-5.0); ALT/SGPT 39 U/L (9-52); AST/SGOT 14 U/L (14-36); BLOOD UREA NITROGEN 6 mg/dL (7-17); CALCIUM 8.3 mg/dl (8.6-10.4); GFR NON-AFRICAN AMERICAN > 60
--- NOTE | 2018-04-03 09:09 | CP.PCM.PCO ---
Physician Communication Note - Physician Communication Note Physician Communication Note: recovering from infection; f/u outpatient flu vaccine
--- NOTE | 2018-04-03 09:12 | CP.PCM.PN ---
Subjective - Date & Time of Evaluation Date of Evaluation: 04/03/18 Time of Evaluation: 09:05 - Subjective Subjective: Medical Attending Note Patient seen and examined at bedside. No acute events overnight. Patient reports she tolerating full liquids. She reports she is very hungry and would like regular diet. Patient also reports she feels swollen likely secondary to the IV fluids. Patient denies headache, denies chest pain, denies shortness of breathe, denies cough, denies abdominal pain, denies nausea, denies constipation, denies dysuria and presently on her menstruation. Objective - Vital Signs/Intake and Output Vital Signs (last 24 hours): Temp Pulse Resp BP Pulse Ox 98.6 F 78 20 134/83 97 04/03/18 08:22 04/03/18 08:22 04/03/18 08:22 04/03/18 08:22 04/03/18 08:22 Intake and Output: 04/03/18 04/03/18 06:59 18:59 Intake Total 1989 Balance 1989 - Medications Medications: Current Medications Acetaminophen (Tylenol 325mg Tab) 650 mg PO Q6H PRN PRN Reason: Fever >100.4 F Famotidine (Pepcid) 20 mg IVP BID [facility] Last Admin: 04/02/18 17:31 Dose: 20 mg Piperacillin Sod/Tazobactam (Sod 3.375 gm/ Sodium Chloride) 100 mls @ 200 mls/hr IVPB Q6H YRN; Protocol Last Admin: 04/03/18 06:07 Dose: 200 mls/hr Metronidazole (Flagyl) 500 mg PO Q8 YRN; Protocol Last Admin: 04/03/18 06:07 Dose: 500 mg Ondansetron HCl (Zofran Inj) 4 mg IVP Q6H PRN PRN Reason: Nausea/Vomiting Last Admin: 04/02/18 08:24 Dose: 4 mg Saccharomyces Boulardii (Florastor) 250 mg PO BID YRN Last Admin: 04/02/18 17:30 Dose: 250 mg - Labs Labs: 04/03/18 08:38 04/03/18 08:38 - Constitutional Appears: Non-toxic, No Acute Distress - Head Exam Head Exam: NORMAL INSPECTION - Eye Exam Eye Exam: EOMI - ENT Exam ENT Exam: Mucous Membranes Moist - Respiratory Exam Respiratory Exam: Clear to Ausculation Bilateral, NORMAL BREATHING PATTERN. absent: Rales, Rhonchi, Wheezes - Cardiovascular Exam Cardiovascular Exam: REGULAR RHYTHM, +S1, +S2 - GI/Abdominal Exam GI & Abdominal Exam: Soft, Normal Bowel Sounds. absent: Distended, Firm, Guarding, Rigid, Tenderness, Rebound - Extremities Exam Extremities Exam: absent: Pedal Edema, Tenderness - Neurological Exam Neurological Exam: Alert, Awake, Oriented x3 Neuro motor strength exam: Left Upper Extremity: 5, Right Upper Extremity: 5, Left Lower Extremity: 5, Right Lower Extremity: 5 - Psychiatric Exam Psychiatric exam: Normal Affect, Normal Mood - Skin Skin Exam: Dry, Intact, Normal Color, Warm Assessment and Plan - Assessment and Plan (Free Text) Assessment: Patient seen, examined, and case discussed with medical radiation tech. patient noted to be febrile, leukocytosis, unclear source of etiology on admiss ion; CT scan noting for bilateral pyelonephritis on admission. There is abnormal UA on admission noting for pyuria, hematuria, elevated procalcitonin for suspected bacterial origin due to sepsis. VBG shock noted for normal lactate; therefore code sepsis was not called. Patient started on Zosyn and Flagyl for antibiotic coverage. Patient reports tolerating full liquid by GI; would like to try regular diet. Tmax: 102.3F (04/02/18: 00:05)-->we will continue to monitor for fever; patient's white count has normalized will continue to give IV abx Monitor blood and stool cultures. Note: patient is on her menstruation as well. Patient advised post hospitalization to f/u with PMD for CBC and iron studies given anemia. Assessment/Plan 1) Sepsis 2/2 B/l pyelonephritis and gastroenteritis Assessment/Plan * Tmax: 102.3F (04/02/18: 00:05)-->we will continue to monitor for fever; patient's white count has normalized * Tylenol level less than therapuetic * Tylenol 650mg PO Q6H prn for fevers * d/c IV fluids * CT abd/pelvis (04/01/18): bilateal regions of diminished enhancement are identified involving upper poles as well as lower pole of kidney reflect pylonephritis. Mild urinary bladder wall thickening. * RUQ U/s neg for acute findings * Abd XR neg for acute findings * Started Zosyn 3.375 g q 6 h (active since 04/01/18; day 3) * Procalcitonin elevated (12.85)-->pending result * U/a demonstrated 2+ protein, 2+ blood, 2+ leukocyte esterase, 15 WBC, 15 RBC * Urine cx (03/31/18): no growth * Blood cx (04/01/18): no growth for 48 hours X2 * Stool culture (04/02/18): no growth (prelim): ova and parasite concentrate exam-->pending * Pt admitted that she started her menstrual cycle 04/01/18, currently denies symptoms 2) Transaminitis-->resolved Assessment/Plan * Elevated bili wnl this am * Lipase wnl * Hepatitis panel wnl * HIV test: negative * hepatitis: negative * Tylenol level: low (took Paracemtol prior to admission) 3) Gastroenteritis Assessment/Plan * Dr. Marcos (GI ) on case-->help appreciated * Noted eaten outside [employer] food * CT abd/pelvis (04/01/18): bilateal regions of diminished enhancement are identified involving upper ples as well as lower pole of kidney reflect pylonephritis. Mild urinary bladder wall thickening. * Patient tolerating full liquids-->advanced to regular diet * Stool ova and parasite: pending * Stool culture: pending * Giardia: pending * Switch to Flagyl 500mg PO Q8H (active since 04/01/18) * c/w Zosyn which will cover for gastroenteritis and pyelonephritis 4) Hypophosphatemia-->Resolved Assessment/Plan * Neutraphos 1 packet PO TIDACC (3 doses) completed 04/02/18 * normalized 5) Elevated bilirubin-->resolved Assessment/Plan * RUQ US: negative * hepatitis serology negative * HIV negative * normalized 6) Hypokalemia Assessment/Plan * replete 7) Prophylactic measure * Diet: regular diet * GI ppx: Pepcid 20 mg IVP bid * DVT ppx: SCDs * Florastor 250mg PO BID Disposition: Pt being treated for sepsis 2/2 b/l pyelonephritis and gastroenteritis. Patient continue to benefit of IV antibiotic. Patient is pending repeat procalcitonin today. Patient is afebrile for 24 hours. We will co ntinue to monitor cultures including blood and stool. Will need further monitoring in hospital.
[2018-04-03] MEDS: Saccharomyces Boulardi 250 mg Cap PO SCH ×2 (09:29→17:27)
[2018-04-03] MEDS ORDERED: Potassium Chloride 20 mEq ER Tab PO ONE (09:30)
[2018-04-03] MEDS ORDERED: Pneumococcal 23-Valent Vaccine IM ONE (10:00)
[2018-04-03] MEDS ORDERED: Influenza Vaccine 60 MCG/0.5 ML SYR (3 yr & up) IM ONE (10:00)
--- NOTE | 2018-04-03 13:42 | CP.PCM.PN ---
Subjective - Date & Time of Evaluation Date of Evaluation: 04/03/18 Time of Evaluation: 13:41 - Subjective Subjective: Patient denies having nausea, vomiting, abdominal pain. She reports passing small amounts of loose stool each time she urinates. Objective - Vital Signs/Intake and Output Vital Signs (last 24 hours): Temp Pulse Resp BP Pulse Ox 98.6 F 78 20 134/83 97 04/03/18 08:22 04/03/18 08:22 04/03/18 08:22 04/03/18 08:22 04/03/18 08:22 Intake and Output: 04/03/18 04/03/18 06:59 18:59 Intake Total 1989 Balance 1989 - Medications Medications: Current Medications Acetaminophen (Tylenol 325mg Tab) 650 mg PO Q6H PRN PRN Reason: Fever >100.4 F Famotidine (Pepcid) 20 mg IVP BID [facility] Last Admin: 04/03/18 09:30 Dose: 20 mg Piperacillin Sod/Tazobactam (Sod 3.375 gm/ Sodium Chloride) 100 mls @ 200 mls/hr IVPB Q6H [facility]; Protocol Last Admin: 04/03/18 11:00 Dose: 200 mls/hr Metronidazole (Flagyl) 500 mg PO Q8 [facility]; Protocol Last Admin: 04/03/18 06:07 Dose: 500 mg Ondansetron HCl (Zofran Inj) 4 mg IVP Q6H PRN PRN Reason: Nausea/Vomiting Last Admin: 04/02/18 08:24 Dose: 4 mg Saccharomyces Boulardii (Florastor) 250 mg PO BID [facility] Last Admin: 04/03/18 09:29 Dose: 250 mg - Labs Labs: 04/03/18 08:38 04/03/18 08:38 - Constitutional Appears: No Acute Distress - Head Exam Head Exam: ATRAUMATIC, NORMOCEPHALIC - Eye Exam Eye Exam: EOMI, PERRL - Neck Exam Neck Exam: absent: Lymphadenopathy, Thyromegaly - Respiratory Exam Respiratory Exam: NORMAL BREATHING PATTERN. absent: Rales, Rhonchi, Wheezes - Cardiovascular Exam Cardiovascular Exam: REGULAR RHYTHM, +S1, +S2. absent: Gallop, Rubs, Murmur - GI/Abdominal Exam GI & Abdominal Exam: Soft, Normal Bowel Sounds. absent: Tenderness, Mass, Organomegaly - Rectal Exam Rectal Exam: Deferred - Extremities Exam Extremities Exam: absent: Calf Tenderness, Pedal Edema Assessment and Plan (1) Diarrhea Assessment & Plan: Patient notes frequent stools today; will check C difficile toxin. Status: Acute
[2018-04-04] MEDS: Piperacillin/Tazobact 3.375 GM in Sodium Chloride 100 ML IVPB SCH ×3 (05:07→17:50)
[2018-04-04 07:25] LABS: BASO # 0.1 K/uL (0.0-0.2); BASO % 0.5 % (0.0-2.0); EOS # 0.1 K/uL (0.0-0.7); EOS % 1.2 % (0.0-4.0); HEMOGLOBIN 10.3 g/dL (11.0-16.0); LYMPH # 1.8 K/uL (1.0-4.3); LYMPH % 16.7 % (20.0-40.0); MEAN CORPUSCULAR HEMOGLOBIN 27.4 pg (27.0-31.0); MEAN CORPUSCULAR HGB CONC 34.6 g/dL (33.0-37.0); MEAN PLATELET VOLUME 8.5 fL (7.2-11.7); MONO # 1.5 K/uL (0.0-0.8); MONO % 13.7 % (0.0-10.0); NEUT # 7.4 K/uL (1.8-7.0); NEUT % 67.9 % (50.0-75.0); NRBC % 0.1 % (0.0-2.0); RBC 3.76 Mil/uL (3.80-5.20); RED CELL DISTRIBUTION WIDTH 13.8 % (11.5-14.5); WHITE BLOOD COUNT 10.9 K/uL (4.8-10.8)
[2018-04-04 07:37] LABS: ALB/GLOB RATIO 0.9 (1.0-2.1); ALT/SGPT 30 U/L (9-52); AST/SGOT 15 U/L (14-36); BLOOD UREA NITROGEN 5 mg/dL (7-17); CALCIUM 8.4 mg/dl (8.6-10.4); GFR NON-AFRICAN AMERICAN > 60
[2018-04-04] MEDS ORDERED: Potassium Chloride 20 mEq ER Tab PO ONE ×2 (08:49→10:49)
[2018-04-04] MEDS: Saccharomyces Boulardi 250 mg Cap PO SCH ×2 (09:44→17:50)
--- NOTE | 2018-04-04 12:49 | CP.PCM.PN ---
Subjective - Date & Time of Evaluation Date of Evaluation: 04/04/18 Time of Evaluation: 08:15 - Subjective Subjective: Medicine Progress Note for Hospitalist Service Pt seen and examined at bedside this am. Reports no acute events overnight. Reports mild fecal incontinence while urinating, but otherwise denies abd pain, dysuria, n/v, low back pain, burning with urination, fever, chills, chest pain, shortness of breath, diarrhea or other symptoms. Pt reports that the last day of her menstrual period was yesterday. Tolerating PO diet, pt states she only ate 25% of her dinner yesterday, only because she felt full. Objective - Vital Signs/Intake and Output Vital Signs (last 24 hours): Temp Pulse Resp BP Pulse Ox 99.2 F 73 20 136/87 96 04/04/18 07:21 04/04/18 07:21 04/04/18 07:21 04/04/18 07:21 04/04/18 07:21 Intake and Output: 04/04/18 04/04/18 06:59 18:59 Intake Total 980 Output Total 1 Balance 979 - Medications Medications: Current Medications Acetaminophen (Tylenol 325mg Tab) 650 mg PO Q6H PRN PRN Reason: Fever >100.4 F Famotidine (Pepcid) 20 mg IVP BID [facility] Last Admin: 04/04/18 09:44 Dose: 20 mg Piperacillin Sod/Tazobactam (Sod 3.375 gm/ Sodium Chloride) 100 mls @ 200 mls/hr IVPB Q6H [facility]; Protocol Last Admin: 04/04/18 10:59 Dose: 200 mls/hr Metronidazole (Flagyl) 500 mg PO Q8 [facility]; Protocol Last Admin: 04/04/18 05:08 Dose: 500 mg Ondansetron HCl (Zofran Inj) 4 mg IVP Q6H PRN PRN Reason: Nausea/Vomiting Last Admin: 04/02/18 08:24 Dose: 4 mg Saccharomyces Boulardii (Florastor) 250 mg PO BID [facility] Last Admin: 04/04/18 09:44 Dose: 250 mg - Labs Labs: 04/04/18 06:45 04/04/18 06:45 - Constitutional Appears: Non-toxic, No Acute Distress, Younger Than Stated Age - Head Exam Head Exam: ATRAUMATIC, NORMOCEPHALIC - Eye Exam Eye Exam: EOMI, Normal appearance, PERRL - ENT Exam ENT Exam: Mucous Membranes Moist - Respiratory Exam Respiratory Exam: Clear to Ausculation Bilateral, NORMAL BREATHING PATTERN. absent: Rales, Rhonchi, Wheezes - Cardiovascular Exam Cardiovascular Exam: REGULAR RHYTHM, +S1, +S2. absent: Gallop, Rubs, Murmur - GI/Abdominal Exam GI & Abdominal Exam: Soft, Normal Bowel Sounds. absent: Distended, Firm, Guarding, Rigid, Tenderness, Organomegaly, Rebound - Extremities Exam Extremities Exam: Full ROM, Normal Capillary Refill, Normal Inspection. absent: Tenderness - Back Exam Back Exam: absent: CVA tenderness (L), CVA tenderness (R), paraspinal tenderness - Neurological Exam Neurological Exam: Alert, Awake, CN II-XII Intact, Normal Gait, Oriented x3 - Psychiatric Exam Psychiatric exam: Normal Affect, Normal Mood - Skin Skin Exam: Dry, Intact, Normal Color, Warm Assessment and Plan - Assessment and Plan (Free Text) Assessment: 33Y [place] female with no significant PMhx admitted for sepsis likely 2/2 bilateral pyelonephritis, gastroenteritis. Plan: Sepsis 2/2 B/l pyelonephritis No fevers since midnight 04/02 Tylenol prn for fevers; LFTs trending down to wnl today IVF d/c'd Acetaminophen level neg CT abd/pelvis on admission demonstrated B/l pyelonephritis, bladder wall thickening/cystitis RUQ U/s neg for acute findings Abd XR neg for acute findings C/w Zosyn 3.375 g q 6 h (day #4), Flagyl 500 q 8 h day 2 Elevated bili now wnl Lipase wnl Hepatitis panel wnl HIV test ordered, f/u results Procalcitonin elevated, repeat trending down Leukocytosis resolved VBG wnl, pt not acidotic, lactate wnl EKG 04/02 NSR, no acute St-t wave changes noted U/a demonstrated 2+ protein, 2+ blood, 2+ leukocyte esterase, 15 WBC, 15 RBC Urine cx negative for growth final Blood cxs (04/01): 1/2 tubes growing gram neg debbie; repeat blood cxs drawn and pending Pt currently denies symptoms R/o gastroenteritis as etiology Stool leukocytes neg; ova/parasites, cxs neg Giardia Ag ordered, f/u results GI consulted (Dr. Marcos), recs appreciated, agrees with current mgmt C. diff toxin ordered by Dr. Verduzco 04/03 (covering for Dr. Marcos), negative Hypophosphatemia - Phosphorus level of 3.7 today, resolved, continue to monitor -K 3.2 today, repleted, continue to monitor Diet: regular GI ppx: Pepcid 20 mg IVP bid DVT ppx: SCDs Dispo: Pt being treated for sepsis 2/2 b/l pyelonephritis necessitating inpatient treatment with IV antibiotics, will continue to monitor clinically. Pt seen, examined with, and plan discussed with Dr. Wilson, attending. Adolfo Dominguez DO PGY-1, Account Leader Pager #[phone]
--- NOTE | 2018-04-04 22:10 | CARD ---
APPROVED REPORT Date of service: 04/02/2018 EKG Measurement Heart [id number] <Conclusion> Normal sinus rhythm Normal ECG
[2018-04-05] MEDS: Piperacillin/Tazobact 3.375 GM in Sodium Chloride 100 ML IVPB SCH ×3 (00:09→12:14)
[2018-04-05 06:34] LABS: BASO # 0.1 K/uL (0.0-0.2); BASO % 0.7 % (0.0-2.0); EOS # 0.1 K/uL (0.0-0.7); EOS % 1.5 % (0.0-4.0); HEMOGLOBIN 11.4 g/dL (11.0-16.0); LYMPH # 2.1 K/uL (1.0-4.3); LYMPH % 20.9 % (20.0-40.0); MEAN CORPUSCULAR HEMOGLOBIN 27.3 pg (27.0-31.0); MEAN CORPUSCULAR HGB CONC 34.1 g/dL (33.0-37.0); MEAN PLATELET VOLUME 8.4 fL (7.2-11.7); MONO # 1.3 K/uL (0.0-0.8); MONO % 12.7 % (0.0-10.0); NEUT # 6.5 K/uL (1.8-7.0); NEUT % 64.2 % (50.0-75.0); RBC 4.18 Mil/uL (3.80-5.20); RED CELL DISTRIBUTION WIDTH 13.8 % (11.5-14.5); WHITE BLOOD COUNT 10.1 K/uL (4.8-10.8)
[2018-04-05 07:39] LABS: ALBUMIN 3.3 g/dL (3.5-5.0); ALT/SGPT 35 U/L (9-52); AST/SGOT 21 U/L (14-36); BLOOD UREA NITROGEN 5 mg/dL (7-17); CALCIUM 8.8 mg/dl (8.6-10.4); GFR NON-AFRICAN AMERICAN > 60
--- NOTE | 2018-04-05 09:24 | CP.PCM.PN ---
Subjective - Date & Time of Evaluation Date of Evaluation: 04/05/18 Time of Evaluation: 09:00 - Subjective Subjective: f/u vomiting, diarrhea Reports feeling better. Denies naus, vomit, diarrhea, constip, RB, melena, CP, SOB, fever, cough Objective - Vital Signs/Intake and Output Vital Signs (last 24 hours): Temp Pulse Resp BP Pulse Ox 98.7 F 70 20 112/69 98 04/05/18 07:20 04/05/18 07:20 04/05/18 07:20 04/05/18 07:20 04/05/18 07:20 Intake and Output: 04/05/18 04/05/18 06:59 18:59 Intake Total 440 Balance 440 - Medications Medications: Current Medications Acetaminophen (Tylenol 325mg Tab) 650 mg PO Q6H PRN PRN Reason: Fever >100.4 F Famotidine (Pepcid) 20 mg IVP BID [facility] Last Admin: 04/04/18 17:50 Dose: 20 mg Piperacillin Sod/Tazobactam (Sod 3.375 gm/ Sodium Chloride) 100 mls @ 200 mls/hr IVPB Q6H [facility]; Protocol Last Admin: 04/05/18 05:37 Dose: 200 mls/hr Metronidazole (Flagyl) 500 mg PO Q8 [facility]; Protocol Last Admin: 04/05/18 06:02 Dose: 500 mg Ondansetron HCl (Zofran Inj) 4 mg IVP Q6H PRN PRN Reason: Nausea/Vomiting Last Admin: 04/02/18 08:24 Dose: 4 mg Saccharomyces Boulardii (Florastor) 250 mg PO BID [facility] Last Admin: 04/04/18 17:50 Dose: 250 mg - Labs Labs: 04/05/18 06:27 04/05/18 06:27 - Constitutional Appears: Non-toxic - Respiratory Exam Respiratory Exam: Clear to Ausculation Bilateral - Cardiovascular Exam Cardiovascular Exam: RRR - GI/Abdominal Exam GI & Abdominal Exam: Soft, Normal Bowel Sounds. absent: Guarding, Tenderness, Mass, Rebound - Neurological Exam Neurological Exam: Alert, Oriented x3 Assessment and Plan (1) Abdominal pain Assessment & Plan: better Status: Acute (2) Abnormal liver function test Assessment & Plan: better Status: Acute (3) Diarrhea Assessment & Plan: better. c diff- neg Status: Acute (4) Gastroenteritis Assessment & Plan: improving. Status: Acute (5) Pyelonephritis Status: Acute (6) Sepsis Assessment & Plan: awaiting BC final. Status: Acute (7) Vomiting Status: Acute
[2018-04-05] MEDS: Saccharomyces Boulardi 250 mg Cap PO SCH ×2 (10:09→17:27)
--- NOTE | 2018-04-05 15:02 | CP.PCM.CON ---
History of Present Illness - History of Present Illness History of Present Illness: dictated Past Patient History - Past Medical History & Family History Past Medical History?: No - Past Social History Smoking Status: Never Smoked - CARDIAC Hx Cardiac Disorders: No - PULMONARY Hx Respiratory Disorders: No - NEUROLOGICAL Hx Neurological Disorder: No - HEENT Hx HEENT Problems: No - RENAL Hx Chronic Kidney Disease: No - ENDOCRINE/METABOLIC Hx Endocrine Disorders: No - HEMATOLOGICAL/ONCOLOGICAL Hx Blood Disorders: No - INTEGUMENTARY Hx Dermatological Problems: No - MUSCULOSKELETAL/RHEUMATOLOGICAL Hx Musculoskeletal Disorders: No Hx Falls: No - GASTROINTESTINAL Hx Gastrointestinal Disorders: No - GENITOURINARY/GYNECOLOGICAL Hx Genitourinary Disorders: No - PSYCHIATRIC Hx Substance Use: No - SURGICAL HISTORY Hx Surgeries: No - ANESTHESIA Hx Anesthesia: Yes Hx Anesthesia Reactions: No Meds Allergies/Adverse Reactions: Allergies Allergy/AdvReac Type Severity Reaction Status Date / Time No Known Allergies Allergy Unverified 03/31/18 19:21 - Medications Medications: Current Medications Acetaminophen (Tylenol 325mg Tab) 650 mg PO Q6H PRN PRN Reason: Fever >100.4 F Famotidine (Pepcid) 20 mg IVP BID [facility] Last Admin: 04/05/18 10:09 Dose: 20 mg Piperacillin Sod/Tazobactam (Sod 3.375 gm/ Sodium Chloride) 100 mls @ 200 mls/hr IVPB Q6H [facility]; Protocol Last Admin: 04/05/18 12:14 Dose: 200 mls/hr Metronidazole (Flagyl) 500 mg PO Q8 [facility]; Protocol Last Admin: 04/05/18 14:20 Dose: 500 mg Ondansetron HCl (Zofran Inj) 4 mg IVP Q6H PRN PRN Reason: Nausea/Vomiting Last Admin: 04/02/18 08:24 Dose: 4 mg Saccharomyces Boulardii (Florastor) 250 mg PO BID [facility] Last Admin: 04/05/18 10:09 Dose: 250 mg Results - Vital Signs Recent Vital Signs: Last Vital Signs Temp 98.7 F 04/05/18 07:20 Pulse 70 04/05/18 07:20 Resp 20 04/05/18 07:20 BP 112/69 04/05/18 07:20 Pulse Ox 98 04/05/18 07:20 - Labs Result Diagrams: 04/05/18 06:27 04/05/18 06:27 Labs: Laboratory Results - last 24 hr 04/02/18 04/05/18 04/05/18 08:30 06:27 06:27 WBC 10.1 RBC 4.18 Hgb 11.4 Hct 33.4 L MCV 80.0 L MCH 27.3 MCHC 34.1 RDW 13.8 Plt Count 475 H MPV 8.4 Neut % (Auto) 64.2 Lymph % (Auto) 20.9 [place] % (Auto) 12.7 H Eos % (Auto) 1.5 Baso % (Auto) 0.7 Neut # (Auto) 6.5 Lymph # (Auto) 2.1 [place] # (Auto) 1.3 H Eos # (Auto) 0.1 Baso # (Auto) 0.1 Sodium 142 Potassium 3.7 Chloride 108 H Carbon Dioxide 23 Anion Gap 15 BUN 5 L Creatinine 0.8 Est GFR ( Amer) > 60 Est GFR (Non-Af Amer) > 60 Random Glucose 97 Calcium 8.8 Phosphorus 4.3 Magnesium 2.1 Total Bilirubin 0.4 AST 21 ALT 35 Alkaline Phosphatase 121 Total Protein 6.7 Albumin 3.3 L Globulin 3.4 Albumin/Globulin Ratio 1.0 Giardia Antigen Not detected Assessment & Plan (1) E. coli bacteremia Status: Acute (2) Pyelonephritis Status: Acute Comment: suggest change to Merrem 1gm q 8hrs fornow Patient can be changed to Invanz 1 gm daily for next 9 days as out patient if she can get it outpatent in infusion center
[2018-04-05] MEDS: Meropenem 1 GM in Sodium Chloride 0.9% 100 ML IVPB SCH ×2 (16:30→23:40)
[2018-04-05] MEDS: Lactobacillus Acidophilus 500 MU Cap PO SCH (17:27)
--- NOTE | 2018-04-05 19:53 | CP.PCM.PN ---
Subjective - Date & Time of Evaluation Date of Evaluation: 04/05/18 Time of Evaluation: 07:30 - Subjective Subjective: PGY-[address] Figueroa Patient is seen and examined at bedside. Patient reports no acute events overnight, and it is in no acute distress at this time. Patient denies any pain. Patient is eating breakfast at time of encounter. Patient states she is tolerating food. Patient denies fevers, chills, chest pain, shortness of breath, abdominal pain, low back pain, diarrhea, constipation or dysuria. Patient is OOB and ambulating. Objective - Vital Signs/Intake and Output Vital Signs (last 24 hours): Temp Pulse Resp BP Pulse Ox 97.9 F 70 20 118/78 99 04/05/18 15:52 04/05/18 15:52 04/05/18 15:52 04/05/18 15:52 04/05/18 15:52 Intake and Output: 04/05/18 04/06/18 18:59 06:59 Intake Total 500 Balance 500 - Medications Medications: Current Medications Acetaminophen (Tylenol 325mg Tab) 650 mg PO Q6H PRN PRN Reason: Fever >100.4 F Famotidine (Pepcid) 20 mg IVP BID [facility] Last Admin: 04/05/18 17:28 Dose: 20 mg Meropenem 1 gm/ Sodium (Chloride) 100 mls @ 100 mls/hr IVPB Q8H [facility]; Protocol Last Admin: 04/05/18 16:30 Dose: 100 mls/hr Lactobacillus Acidophilus (Bacid Acidophilus) 1 cap PO BID [facility] Last Admin: 04/05/18 17:27 Dose: 1 cap Ondansetron HCl (Zofran Inj) 4 mg IVP Q6H PRN PRN Reason: Nausea/Vomiting Last Admin: 04/02/18 08:24 Dose: 4 mg Saccharomyces Boulardii (Florastor) 250 mg PO BID [facility] Last Admin: 04/05/18 17:27 Dose: 250 mg - Labs Labs: 04/05/18 06:27 04/05/18 06:27 - Constitutional Appears: Well, Non-toxic, No Acute Distress - Head Exam Head Exam: ATRAUMATIC, NORMAL INSPECTION, NORMOCEPHALIC - Eye Exam Eye Exam: EOMI, Normal appearance - ENT Exam ENT Exam: Mucous Membranes Moist, Normal Exam - Neck Exam Neck Exam: Full ROM, Normal Inspection - Respiratory Exam Respiratory Exam: Clear to Ausculation Bilateral, NORMAL BREATHING PATTERN. absent: Accessory Muscle Use, Rales, Rhonchi, Wheezes - Cardiovascular Exam Cardiovascular Exam: REGULAR RHYTHM, +S1, +S2 - GI/Abdominal Exam GI & Abdominal Exam: Soft, Normal Bowel Sounds. absent: Distended, Guarding, Tenderness - Extremities Exam Extremities Exam: Full ROM, Normal Inspection. absent: Calf Tenderness, Tenderness - Back Exam Back Exam: Full ROM, NORMAL INSPECTION. absent: CVA tenderness (L), CVA tenderness (R), paraspinal tenderness, tenderness, vertebral tenderness - Neurological Exam Neurological Exam: Alert, Awake, Normal Gait, Oriented x3 - Psychiatric Exam Psychiatric exam: Normal Affect, Normal Mood - Skin Skin Exam: Dry, Intact, Normal Color, Warm Assessment and Plan - Assessment and Plan (Free Text) Plan: Sepsis 2/2 B/l pyelonephritis No fevers since midnight 04/02. Patient continues to be afebrile today 04/05 (97.9F) Tylenol prn for fevers; LFTs trending now (AST/AST - 21/35) IVF d/c'd Acetaminophen level neg CT abd/pelvis on admission demonstrated B/l pyelonephritis, bladder wall thickening/cystitis RUQ U/s neg for acute findings Abd XR neg for acute findings Elevated bili now wnl Lipase wnl Hepatitis panel wnl HIV test ordered, negative Procalcitonin elevated, repeat trending down Leukocytosis resolved, now 10.1 VBG wnl, pt not acidotic, lactate wnl EKG 04/02 NSR, no acute St-t wave changes noted U/a demonstrated 2+ protein, 2+ blood, 2+ leukocyte esterase, 15 WBC, 15 RBC Urine cx negative for growth final Blood cxs (04/01): Positive for ESBL E.coli, highest sensitive to Meropenem Blood cxs (04/04): no growth after 24 hours Meds: Started Meropenem 1gm IVPB Q8hr Discotinued Zosyn 3.375 g q [address] Cullen Discontinued Flagyl 500 q 8 h day 2 R/o gastroenteritis as etiology Stool leukocytes neg; ova/parasites, cxs neg Giardia Ag ordered, f/u results GI consulted (Dr. Marcos), recs appreciated, agrees with current mgmt C. diff toxin ordered by Dr. Verduzco 04/03 (covering for Dr. Marcos), negative Hypophosphatemia, resolved - Phosphorus level of 4.3 today, continue to monitor -K 3.7 today, improved from 3.2, continue to monitor Diet: regular GI ppx: Pepcid 20 mg IVP bid DVT ppx: SCDs Patient to be placed on contact precautions Dispo: Pt being treated for sepsis 2/2 b/l pyelonephritis necessitating inpatient treatment with IV antibiotics, will continue to monitor clinically. Plan discussed with Dr Henry Espitia, PGY-1
--- NOTE | 2018-04-06 06:27 | CON ---
DATE: 04/05/2018 INFECTIOUS DISEASE CONSULTATION REQUESTED BY: Robles Figueroa MD HISTORY OF PRESENT ILLNESS: This patient is a 33-year-old female. She was admitted from the ER with fever, nausea, and vomiting for past four days. She has been here since 04/01/2018. She says she was having fever and having nonbloody, nonbilious vomiting. She was admitted. She was taking Tylenol and her fever was high, so she got admitted, and she is being followed by GI. I am asked to evaluate because her cultures are E. coli ESBL positive. She has been on Zosyn since admission. Today is day five of her medications. She denies any fever, chills, nausea or vomiting. Denies any urinary symptoms. Was having back pain. SOCIAL HISTORY: She does not smoke or drink. She is from [place] on a visitor visa here. Her is in [place] at this time. Her LMP was 03/03/2018. ALLERGIES: SHE HAS NO ALLERGIES. PAST SURGICAL HISTORY: Significant for . She denies any urinary problem. FAMILY HISTORY: Mother has heart problems, CHF. Father has heart problems, coronary artery disease, and has had angioplasty. REVIEW OF SYSTEMS: She denied most of the complaints. No headache. No nausea, vomiting or diarrhea. Today, she is now tolerating food. Denies any abdominal pain. She said she did have back pain and it seems like the pain was in the flank area. She denies any urinary symptoms. No diarrhea. PHYSICAL EXAMINATION: VITAL SIGNS: T-max is 97.9, pulse 70, blood pressure 118/78, respirations are 20. HEENT: Head is atraumatic, normocephalic. NECK: Supple. LUNGS: Clear. HEART: S1 and S2, regular. ABDOMEN: Soft, nontender. No guarding. No CVA tenderness present. EXTREMITIES: Have no edema. LABORATORY DATA: White count is 10.1, hemoglobin 11.4, hematocrit is 33.4, platelet count is 475. Anion gap is 15. BUN is 5, creatinine is 0.8. IMPRESSION AND PLAN: The patient has been on Zosyn and her culture initially was Escherichia coli and it has come out negative on 04/04/2018, so it is improving, but it is extended spectrum beta-lactamases positive, hence I have changed her medications to meropenem. We will continue that 1 g every 8 hours. She will need at least 9 to 10 days of antibiotics more. If the case preparer and liner can get her infusion, she can get Invanz as outpatient, but for now, I will change the antibiotic to meropenem. She had ultrasound for gallbladder that was negative. She had abdominopelvic CT, which shows bilateral region of diminished enhancement identified involving bilateral upper poles as well as left lower pole kidney, which may reflect pyelonephritis. Differential diagnosis includes sequelae of vascular insufficient versus infarct or infiltrating process, but since she has Escherichia coli bacteremia, I would think it is related to that. There was no echocardiogram done, so we will order an echocardiogram at this time and we will follow. It is late, so they may do the echocardiogram tomorrow. Gaston Cullen MD
[2018-04-06 06:49] LABS: BASO # 0.1 K/uL (0.0-0.2); BASO % 0.5 % (0.0-2.0); EOS # 0.2 K/uL (0.0-0.7); EOS % 1.7 % (0.0-4.0); HEMOGLOBIN 11.2 g/dL (11.0-16.0); LYMPH # 2.5 K/uL (1.0-4.3); LYMPH % 24.1 % (20.0-40.0); MEAN CELL VOLUME 80.2 fL (81.0-99.0); MEAN CORPUSCULAR HEMOGLOBIN 27.2 pg (27.0-31.0); MEAN CORPUSCULAR HGB CONC 33.9 g/dL (33.0-37.0); MEAN PLATELET VOLUME 8.4 fL (7.2-11.7); MONO # 0.9 K/uL (0.0-0.8); MONO % 8.9 % (0.0-10.0); NEUT # 6.8 K/uL (1.8-7.0); NEUT % 64.8 % (50.0-75.0); RBC 4.14 Mil/uL (3.80-5.20); RED CELL DISTRIBUTION WIDTH 13.7 % (11.5-14.5); WHITE BLOOD COUNT 10.4 K/uL (4.8-10.8)
[2018-04-06 08:15] LABS: ALBUMIN 3.5 g/dL (3.5-5.0); ALT/SGPT 25 U/L (9-52); AST/SGOT 17 U/L (14-36); BLOOD UREA NITROGEN 7 mg/dL (7-17); CALCIUM 9.1 mg/dl (8.6-10.4); GFR NON-AFRICAN AMERICAN > 60
[2018-04-06] MEDS: Meropenem 1 GM in Sodium Chloride 0.9% 100 ML IVPB SCH ×3 (09:00→23:44)
[2018-04-06] MEDS: Saccharomyces Boulardi 250 mg Cap PO SCH ×2 (09:34→18:34)
[2018-04-06] MEDS: Lactobacillus Acidophilus 500 MU Cap PO SCH ×2 (09:34→18:34)
--- NOTE | 2018-04-06 13:25 | CP.PCM.PN ---
Subjective - Date & Time of Evaluation Date of Evaluation: 04/06/18 Time of Evaluation: 09:15 - Subjective Subjective: Medicine Progress Note for Hospitalist Service Pt seen and examined at bedside this am. Denies any acute complaints, reports sleeping well overnight and tolerating PO diet. No acute events reported overnight. 12-point ROS obtained, otherwise neg as per pt. Denies fever, chills, chest pain, sob, n/v/d/c, low back pain, dysuria/urinary frequency, burning with urination, or other symptoms. Objective - Vital Signs/Intake and Output Vital Signs (last 24 hours): Temp Pulse Resp BP Pulse Ox 98.7 F 73 20 121/86 99 04/06/18 07:21 04/06/18 07:21 04/06/18 07:21 04/06/18 07:21 04/06/18 07:21 Intake and Output: 04/06/18 04/06/18 06:59 18:59 Intake Total 460 Balance 460 - Medications Medications: Current Medications Acetaminophen (Tylenol 325mg Tab) 650 mg PO Q6H PRN PRN Reason: Fever >100.4 F Famotidine (Pepcid) 20 mg IVP BID [facility] Last Admin: 04/06/18 09:34 Dose: 20 mg Meropenem 1 gm/ Sodium (Chloride) 100 mls @ 100 mls/hr IVPB Q8H [facility]; Protocol Last Admin: 04/06/18 09:00 Dose: 100 mls/hr Lactobacillus Acidophilus (Bacid Acidophilus) 1 cap PO BID [facility] Last Admin: 04/06/18 09:34 Dose: 1 cap Ondansetron HCl (Zofran Inj) 4 mg IVP Q6H PRN PRN Reason: Nausea/Vomiting Last Admin: 04/02/18 08:24 Dose: 4 mg Saccharomyces Boulardii (Florastor) 250 mg PO BID [facility] Last Admin: 04/06/18 09:34 Dose: 250 mg - Labs Labs: 04/06/18 06:39 04/06/18 06:39 - Constitutional Appears: Non-toxic, No Acute Distress - Head Exam Head Exam: ATRAUMATIC, NORMOCEPHALIC - Eye Exam Eye Exam: EOMI, Normal appearance, PERRL - ENT Exam ENT Exam: Mucous Membranes Moist - Respiratory Exam Respiratory Exam: Clear to Ausculation Bilateral, NORMAL BREATHING PATTERN. absent: Rales, Rhonchi, Wheezes - Cardiovascular Exam Cardiovascular Exam: REGULAR RHYTHM, +S1, +S2. absent: Gallop, Rubs, Murmur - GI/Abdominal Exam GI & Abdominal Exam: Soft, Normal Bowel Sounds. absent: Distended, Firm, Guarding, Rigid, Tenderness, Organomegaly, Rebound - Extremities Exam Extremities Exam: Full ROM, Normal Capillary Refill, Normal Inspection. absent: Calf Tenderness, Joint Swelling, Pedal Edema - Back Exam Back Exam: absent: CVA tenderness (L), CVA tenderness (R) - Neurological Exam Neurological Exam: Alert, Awake, CN II-XII Intact, Normal Gait, Oriented x3 - Psychiatric Exam Psychiatric exam: Normal Affect, Normal Mood - Skin Skin Exam: Dry, Intact, Normal Color, Warm Assessment and Plan - Assessment and Plan (Free Text) Assessment: 33Y [place] female with no significant PMhx admitted for sepsis likely 2/2 bilateral pyelonephritis, gastroenteritis. Plan: Sepsis 2/2 B/l pyelonephritis No fevers since midnight 04/02. Patient continues to be afebrile today 04/06 (97.9F) Tylenol prn for fevers; LFTs trending down from admission IVF d/c'd Acetaminophen level neg CT abd/pelvis on admission demonstrated B/l pyelonephritis, bladder wall thickening/cystitis RUQ U/s neg for acute findings Abd XR neg for acute findings Elevated bili now wnl Lipase wnl Hepatitis panel wnl HIV test ordered, negative Procalcitonin elevated, repeat trending down Leukocytosis resolved, now 10.1 VBG wnl, pt not acidotic, lactate wnl EKG 04/02 NSR, no acute St-t wave changes noted U/a demonstrated 2+ protein, 2+ blood, 2+ leukocyte esterase, 15 WBC, 15 RBC Urine cx negative for growth final Blood cxs (04/01): Positive for ESBL E.coli, sensitive to Meropenem Blood cxs (04/04): no growth after 24 hours Obtained consent from pt for PICC line placement, discussed with CM today plan for possible Invanz infusion outpatient if pt's insurance approves Meds: Started Meropenem 1gm IVPB Q8hr (04/05/18) Discotinued Zosyn 3.375 g q [address] Cullen Discontinued Flagyl 500 q 8 h day 2 R/o gastroenteritis as etiology Stool leukocytes neg; ova/parasites, cxs neg Giardia Ag ordered, f/u results GI consulted (Dr. Marcos), recs appreciated, agrees with current mgmt C. diff toxin ordered by Dr. Verduzco 04/03 (covering for Dr. Marcos), negative Hypophosphatemia, resolved -Phosphorus level of 3.9 today, continue to monitor -K 3.8 today, continue to monitor Diet: regular GI ppx: Pepcid 20 mg IVP bid DVT ppx: SCDs Patient to be placed on contact precautions Dispo: Pt being treated for sepsis 2/2 b/l pyelonephritis necessitating inpatient treatment with IV antibiotics, will continue to monitor clinically. Pt seen, examined with, and plan discussed with Dr. Figueroa, attending. Adolfo Dominguez DO PGY-1, Box Covering Machine Operator Pager #[phone]
--- NOTE | 2018-04-06 13:43 | CARD ---
APPROVED REPORT Date of service: 04/06/2018 EXAM: Two-dimensional and M-mode echocardiogram with Doppler and color Doppler. INDICATION Fever 2D DIMENSIONS IVSd0.6 (0.7-1.1cm)Aortic Root (2D)2.4 (2.0-3.7cm) LVDd4.4 (3.9-5.9cm)PWd0.7 (0.7-1.1cm) LA Aywsvp26 (18-58mL)LVDs2.6 (2.5-4.0cm) FS (%) 40.3 %LVEF (%)66.0 (>50%) LVEF (Miller's)60 %IVC0.00 cm M-Mode DIMENSIONS Left Atrium (MM)3.18 (2.5-4.0cm)IVSd0.60 (0.7-1.1cm) Aortic Root2.24 (2.2-3.7cm)LVDd4.22 (4.0-5.6cm) Aortic Cusp Exc.1.61 (1.5-2.0cm)PWd0.62 (0.7-1.1cm) FS (%) 35 %LVDs2.73 (2.0-3.8cm) LVEF (%)65 (>50%) Mitral Valve MV E Zmjfozje90.9cm/sMV A Lodpvytk10.1cm/sE/A ratio1.5 TDI Lateral E' Peak V16.30cm/sMedial E' Peak V7.45cm/sE/Lateral E'5.3 E/Medial E'11.5 Tricuspid Valve TR Peak Qdtxslpt523ii/sTR Peak Gr.[id number] LEFT VENTRICLE The left ventricle is normal size. There is normal left ventricular wall thickness. The left ventricular function is normal. The left ventricular ejection fraction is within the low normal range., 51% No regional wall motion abnormalities noted. The left ventricular diastolic function is normal. No left ventricle thrombus noted on this study. There is no ventricular septal defect visualized. There is no left ventricular aneurysm. There is no mass noted in the left ventricle. RIGHT VENTRICLE The right ventricle is normal size. There is normal right ventricular wall thickness. The right ventricular systolic function is normal. ATRIA The left atrium size is normal. The right atrium size is normal. The interatrial septum is intact with no evidence for an atrial septal defect. AORTIC VALVE The aortic valve is normal in structure and function. No aortic regurgitation is present. There is no aortic valvular stenosis. There is no aortic valvular vegetation. MITRAL VALVE The mitral valve is normal in structure and function. There is no evidence of mitral valve prolapse. There is no mitral valve stenosis. There is no mitral valve regurgitation noted. TRICUSPID VALVE The tricuspid valve is normal in structure and function. There is no tricuspid valve regurgitation noted. There is no tricuspid valve prolapse or vegetation. There is no tricuspid valve stenosis. PULMONIC VALVE The pulmonary valve is normal in structure and function. There is no pulmonic valvular regurgitation. There is no pulmonic valvular stenosis. GREAT VESSELS The aortic root is normal in size. The ascending aorta is normal in size. The pulmonary artery is normal. The IVC is normal in size and collapses >50% with inspiration. PERICARDIAL EFFUSION The pericardium appears normal. There is no pleural effusion. <Conclusion> The left ventricular function is low normal. Normal Doppler.
[2018-04-07 07:38] LABS: BASO # 0.1 K/uL (0.0-0.2); BASO % 0.7 % (0.0-2.0); EOS # 0.1 K/uL (0.0-0.7); EOS % 1.2 % (0.0-4.0); HEMOGLOBIN 11.2 g/dL (11.0-16.0); LYMPH # 2.6 K/uL (1.0-4.3); MEAN CELL VOLUME 80.1 fL (81.0-99.0); MEAN CORPUSCULAR HEMOGLOBIN 27.3 pg (27.0-31.0); MEAN CORPUSCULAR HGB CONC 34.1 g/dL (33.0-37.0); MEAN PLATELET VOLUME 8.3 fL (7.2-11.7); MONO # 0.9 K/uL (0.0-0.8); MONO % 8.7 % (0.0-10.0); NEUT # 6.2 K/uL (1.8-7.0); NEUT % 63.4 % (50.0-75.0); RBC 4.09 Mil/uL (3.80-5.20); RED CELL DISTRIBUTION WIDTH 13.9 % (11.5-14.5); WHITE BLOOD COUNT 9.8 K/uL (4.8-10.8)
[2018-04-07] MEDS: Meropenem 1 GM in Sodium Chloride 0.9% 100 ML IVPB SCH ×2 (08:37→16:48)
[2018-04-07 09:17] LABS: ALBUMIN 3.6 g/dL (3.5-5.0); ALT/SGPT 28 U/L (9-52); AST/SGOT 23 U/L (14-36); BLOOD UREA NITROGEN 9 mg/dL (7-17); CALCIUM 9.3 mg/dl (8.6-10.4); GFR NON-AFRICAN AMERICAN > 60
[2018-04-07 09:39] VITALS: BP 107/75; PULSE 89; TEMP 97.5; O2SAT 98
--- NOTE | 2018-04-07 09:51 | CP.PCM.PN ---
Objective - Vital Signs/Intake and Output Vital Signs (last 24 hours): Temp Pulse Resp BP Pulse Ox 97.5 F L 89 20 107/75 98 04/07/18 07:00 04/07/18 07:00 04/07/18 07:00 04/07/18 07:00 04/07/18 07:00 Intake and Output: 04/07/18 04/07/18 06:59 18:59 Intake Total 1080 Balance 1080 - Medications Medications: Current Medications Acetaminophen (Tylenol 325mg Tab) 650 mg PO Q6H PRN PRN Reason: Fever >100.4 F Famotidine (Pepcid) 20 mg PO BID [facility] Last Admin: 04/06/18 18:34 Dose: 20 mg Meropenem 1 gm/ Sodium (Chloride) 100 mls @ 100 mls/hr IVPB Q8H [facility]; Protocol Last Admin: 04/07/18 08:37 Dose: 100 mls/hr Lactobacillus Acidophilus (Bacid Acidophilus) 1 cap PO BID [facility] Last Admin: 04/06/18 18:34 Dose: 1 cap Ondansetron HCl (Zofran Inj) 4 mg IVP Q6H PRN PRN Reason: Nausea/Vomiting Last Admin: 04/02/18 08:24 Dose: 4 mg Saccharomyces Boulardii (Florastor) 250 mg PO BID [facility] Last Admin: 04/06/18 18:34 Dose: 250 mg - Labs Labs: 04/07/18 07:28 04/07/18 07:28
[2018-04-07] MEDS: Lactobacillus Acidophilus 500 MU Cap PO SCH ×2 (10:58→17:31)
[2018-04-07] MEDS: Saccharomyces Boulardi 250 mg Cap PO SCH ×2 (10:58→17:32)
--- NOTE | 2018-04-07 11:05 | RAD ---
Date of service: 04/07/2018 HISTORY: verify right PICC COMPARISON: 04/01/2018 FINDINGS: LUNGS: No active pulmonary disease. PLEURA: No significant pleural effusion identified, no pneumothorax apparent. CARDIOVASCULAR: Normal heart size. Interval insertion of a right subclavian PICC line tip at cavoatrial junction. OSSEOUS STRUCTURES: No significant abnormalities. VISUALIZED UPPER ABDOMEN: Normal. OTHER FINDINGS: None. IMPRESSION: Interval insertion right PICC line Tip position appears satisfactory as above.
--- NOTE | 2018-04-07 13:21 | CP.PCM.PN ---
Subjective - Date & Time of Evaluation Date of Evaluation: 04/07/18 Time of Evaluation: 13:00 - Subjective Subjective: dictated Objective - Vital Signs/Intake and Output Vital Signs (last 24 hours): Temp Pulse Resp BP Pulse Ox 97.5 F L 89 20 107/75 98 04/07/18 07:00 04/07/18 07:00 04/07/18 07:00 04/07/18 07:00 04/07/18 07:00 Intake and Output: 04/07/18 04/07/18 06:59 18:59 Intake Total 1080 Balance 1080 - Medications Medications: Current Medications Acetaminophen (Tylenol 325mg Tab) 650 mg PO Q6H PRN PRN Reason: Fever >100.4 F Famotidine (Pepcid) 20 mg PO BID [facility] Last Admin: 04/07/18 10:58 Dose: 20 mg Meropenem 1 gm/ Sodium (Chloride) 100 mls @ 100 mls/hr IVPB Q8H [facility]; Protocol Last Admin: 04/07/18 08:37 Dose: 100 mls/hr Ertapenem 1 gm/ Sodium (Chloride) 100 mls @ 100 mls/hr IV ONCE ONE; Protocol Stop: 04/07/18 13:57 Lactobacillus Acidophilus (Bacid Acidophilus) 1 cap PO BID [facility] Last Admin: 04/07/18 10:58 Dose: 1 cap Ondansetron HCl (Zofran Inj) 4 mg IVP Q6H PRN PRN Reason: Nausea/Vomiting Last Admin: 04/02/18 08:24 Dose: 4 mg Saccharomyces Boulardii (Florastor) 250 mg PO BID [facility] Last Admin: 04/07/18 10:58 Dose: 250 mg - Labs Labs: 04/07/18 07:28 04/07/18 07:28 Assessment and Plan (1) E. coli bacteremia Status: Acute (2) Pyelonephritis Status: Acute
[2018-04-07] MEDS ORDERED: SODIUM CHLORIDE 0.9% IV ONE (14:00)
[2018-04-07] MEDS ORDERED: NS IV ONE (14:00)
[2018-04-07] MEDS ORDERED: ERTAPENEM IV ONE (14:00)
--- NOTE | 2018-04-07 17:56 | PN ---
DATE: 04/07/2018 INFECTIOUS DISEASE FOLLOWUP SUBJECTIVE: The patient is very afebrile. She feels better. She has a PICC line in the right arm. Vitals are stable. She denies any pain on urination. No back pain. No nausea. No vomiting. Echo has been negative. Blood culture last ones are negative. She received Zosyn before, which had made her blood cultures negative, so clinically it worked. She is going to go for home with infusion for seven more days with Merrem. We are changing to Invanz. We will give her Invanz 1 g daily and she is going to get first dose today and seven more days. PHYSICAL EXAMINATION: VITAL SIGNS: T-max is 97.5, pulse 89, blood pressure 107/75, respirations are 20. HEENT: Head is atraumatic and normocephalic. NECK: Supple. LUNGS: Clear. No crackles or rales present. HEART: S1 and S2 is regular. ABDOMEN: Soft, nontender. No guarding. No rigidity present. No CVA tenderness present at this time. ASSESSMENT AND PLAN: I think seven days more of the meropenem will complete like ten days of meropenem and she has had like four days of Zosyn, so that should cover for this Escherichia coli, extended-spectrum beta-lactamases and she is going to get Invanz today and if she has no problems with it, the protective services case worker is trying to get her intravenous infusion every day. She will have to come to the [facility] to get it and she will also get complete blood count, complete metabolic panel on Wednesday and the patient to follow up after she is done with that. She did come in with a complicated urinary tract infection, had nausea and vomiting, and had acute pyelonephritis. There were some . Gaston Cullen MD
[2018-04-07] MEDS ORDERED: Pneumococcal 23-Valent Vaccine IM ONE (18:00)
[2018-04-07] MEDS ORDERED: Influenza Vaccine 60 MCG/0.5 ML SYR (3 yr & up) IM ONE (18:21)
--- NOTE | 2018-04-07 18:25 | CP.PCM.DIS ---
Provider - Provider Date of Admission: 03/31/18 23:33 Attending physician: Robles Figueroa MD Primary care physician: None Consults: Gastroenterology - Dr. Marcos Infectious Disease - Dr. Cullen Time Spent in preparation of Discharge (in minutes): 45 Diagnosis - Discharge Diagnosis (1) E. coli bacteremia Status: Acute (2) Gastroenteritis Status: Acute (3) Pyelonephritis Status: Acute (4) Sepsis Status: Acute Hospital Course - Lab Results Lab Results: Micro Results 04/04/18 12:00 Blood Blood Culture - Preliminary NO GROWTH AFTER 3 DAYS 04/04/18 11:44 Blood Blood Culture - Preliminary NO GROWTH AFTER 3 DAYS 04/01/18 06:51 Blood Blood Culture - Final NO GROWTH AFTER 5 DAYS 04/01/18 06:51 Blood Gram Stain - Final TEST NOT PERFORMED 04/01/18 06:51 Blood Blood Culture - Final Escherichia Coli 04/01/18 06:51 Blood Gram Stain - Final 04/02/18 08:30 Stool Stool Culture - Final NO SALMONELLA, SHIGELLA OR CAMPYLOBACTER ISOLATED. 04/02/18 08:30 Stool Ova and Parasite Concentrate Exam - Final 03/31/18 23:49 Urine,Clean Catch Urine Culture - Final No Growth (<1,000 CFU/ML) Most Recent Lab Values WBC 9.8 K/uL (4.8-10.8) 04/07/18 07:28 RBC 4.09 Mil/uL (3.80-5.20) 04/07/18 07:28 Hgb 11.2 g/dL (11.0-16.0) 04/07/18 07:28 Hct 32.7 % (34.0-47.0) L 04/07/18 07:28 MCV 80.1 fL (81.0-99.0) L 04/07/18 07:28 MCH 27.3 pg (27.0-31.0) 04/07/18 07:28 MCHC 34.1 g/dL (33.0-37.0) 04/07/18 07:28 RDW 13.9 % (11.5-14.5) 04/07/18 07:28 Plt Count 518 K/uL (130-400) H 04/07/18 07:28 MPV 8.3 fL (7.2-11.7) 04/07/18 07:28 Neut % (Auto) 63.4 % (50.0-75.0) 04/07/18 07: Lymph % (Auto) 26.0 % (20.0-40.0) 04/07/18 07: [place] % (Auto) 8.7 % (0.0-10.0) 04/07/18 07:28 Eos % (Auto) 1.2 % (0.0-4.0) 04/07/18 07: Baso % (Auto) 0.7 % (0.0-2.0) 04/07/18 07: Neut # (Auto) 6.2 K/uL (1.8-7.0) 04/07/18 07: Lymph # (Auto) 2.6 K/uL (1.0-4.3) 04/07/18 07: [place] # (Auto) 0.9 K/uL (0.0-0.8) H 04/07/18 07: Eos # (Auto) 0.1 K/uL (0.0-0.7) 04/07/18 07: Baso # (Auto) 0.1 K/uL (0.0-0.2) 04/07/18 07:28 Neutrophils % (Manual) 91 % (50-75) H 04/01/18 06:51 Lymphocytes % (Manual) 6 % (20-40) L 04/01/18 06:51 Monocytes % (Manual) 3 % (0-10) 04/01/18 06:51 Platelet Estimate Normal (NORMAL) 04/01/18 06:51 Plt Clumps, EDTA Present 03/31/18 19:57 Hypochromasia (manual) Slight 04/01/18 06:51 Poikilocytosis (manual Slight 04/01/18 06:51 Anisocytosis (manual) Slight 04/01/18 06:51 ESR 120 mm/hr (0-20) H 04/06/18 06:39 pO2 51 mm/Hg (30-55) 04/01/18 11:08 VBG pH 7.40 (7.32-7.43) 04/01/18 11:08 VBG pCO2 31 mmHg (40-60) L 04/01/18 11:08 VBG HCO3 21.1 mmol/L 04/01/18 11:08 VBG Total CO2 20.2 mmol/L (22-28) L 04/01/18 11:08 VBG O2 Sat (Calc) 92.5 % (40-65) H 04/01/18 11:08 VBG Base Excess -4.5 mmol/L (0.0-2.0) L 04/01/18 11:08 VBG Potassium 3.5 mmol/L (3.6-5.2) L 04/01/18 11:08 Sodium 141.0 mmol/l (132-148) 04/01/18 11:08 Chloride 115.0 mmol/L (98-107) H 04/01/18 11:08 Glucose 95 mg/dl (65-105) 04/01/18 11:08 Lactate 0.8 mmol/L (0.7-2.1) 04/01/18 11:08 Sodium 140 mmol/L (132-148) 04/07/18 07:28 Potassium 4.0 mmol/L (3.6-5.2) 04/07/18 07:28 Chloride 107 mmol/L (98-107) 04/07/18 07:28 Carbon Dioxide 22 mmol/L (22-30) 04/07/18 07:28 Anion Gap 15 (10-20) 04/07/18 07:28 BUN 9 mg/dL (7-17) 04/07/18 07:28 Creatinine 0.7 mg/dL (0.7-1.2) 04/07/18 07:28 Est GFR ( Amer) > 60 04/07/18 07:28 Est GFR (Non-Af Amer) > 60 04/07/18 07:28 Random Glucose 88 mg/dL (65-105) 04/07/18 07:28 Calcium 9.3 mg/dl (8.6-10.4) 04/07/18 07:28 Phosphorus 3.6 mg/dL (2.5-4.5) 04/07/18 07:28 Magnesium 2.2 mg/dL (1.6-2.3) 04/07/18 07:28 Total Bilirubin 0.4 mg/dL (0.2-1.3) 04/07/18 07:28 Direct Bilirubin 1.5 mg/dL (0.0-0.4) H 03/31/18 22:57 AST 23 U/L (14-36) 04/07/18 07:28 ALT 28 U/L (9-52) 04/07/18 07:28 Alkaline Phosphatase 117 U/L (38-126) 04/07/18 07:28 Total Protein 7.2 g/dL (6.3-8.3) 04/07/18 07:28 Albumin 3.6 g/dL (3.5-5.0) 04/07/18 07:28 Globulin 3.6 gm/dL (2.2-3.9) 04/07/18 07:28 Albumin/Globulin Ratio 1.0 (1.0-2.1) 04/07/18 07:28 Lipase 36 U/L (23-300) 03/31/18 19:57 Procalcitonin 2.53 NG/ML (0.19-0.49) H 04/03/18 11:37 Venous Blood Potassium 3.5 mmol/L (3.6-5.2) L 04/01/18 11:08 Urine Color Yellow (YELLOW) 03/31/18 19:57 Urine Clarity Hazy (Clear) 03/31/18 19:57 Urine pH 6.0 (5.0-8.0) 03/31/18 19:57 Ur Specific [place] 1.008 (1.003-1.030) 03/31/18 19:57 Urine Protein 2+ mg/dL (NEGATIVE) H 03/31/18 19:57 Urine Glucose (UA) Normal mg/dL (Normal) 03/31/18 19:57 Urine Ketones Negative mg/dL (NEGATIVE) 03/31/18 19:57 Urine Blood 2+ (NEGATIVE) H 03/31/18 19:57 Urine Nitrate Negative (NEGATIVE) 03/31/18 19:57 Urine Bilirubin Negative (NEGATIVE) 03/31/18 19:57 Urine Urobilinogen 4.0 mg/dL (0.2-1.0) H 03/31/18 19:57 Ur Leukocyte Esterase 2+ Jennifer/uL (Negative) H 03/31/18 19:57 Urine WBC (Auto) 15 /hpf (0-5) H 03/31/18 19:57 Urine RBC (Auto) 14 /hpf (0-3) H 03/31/18 19:57 Ur Squamous Epith Cells 3 /hpf (0-5) 03/31/18 19:57 Ur Transition Epith Cell < 1 /hpf (0-3) 03/31/18 19:57 Urine Bacteria Few (<OCC) H 03/31/18 19:57 Urine HCG, Qual Negative (NEGATIVE) 03/31/18 19:57 Stool Leukocytes, Qual Negative (NEGATIVE) 04/02/18 08:30 Acetaminophen < 10.0 ug/mL (10.0-30.0) L 04/01/18 11:39 C. difficile Ag & Toxin Negative (NEGATIVE) 04/03/18 10:08 Giardia Antigen Not detected (Not Detected) 04/02/18 08:30 Hepatitis A IgM Ab Negative (NEGATIVE) 04/01/18 11:39 Hep Bs Antigen Negative (NEGATIVE) 04/01/18 11:39 Hep B Core IgM Ab Negative (NEGATIVE) 04/01/18 11:39 Hepatitis C Antibody Negative (NEGATIVE) 04/01/18 11:39 HIV 1&2 Antibody Screen Negative (NEGATIVE) 04/01/18 11:39 - Hospital Course Hospital Course: Medicine Discharge Summary for Hospitalist Service Adolfo Dominguez DO PGY-1, [employer] This is a 33 y o female with no significant PMhx who presented to the ED on 03/31/18 with subjective fevers and nausea/vomiting for the past 4 days. Pt stated that several days prior, she started experiencing subjective fevers, 2-3 episodes of non-bloody non-bilious vomiting every day. Was taking paracetamol 500 mg at home for the fevers. Also had epigastric/periumbilical pain that started after the vomiting. Stated abd pain was intermittent in nature and non- radiating, 6/10 on pain scale. Last ate food several days prior when she had godinez and bread. Since that day was only able to tolerate lemon and water. Reported last episode of emesis was 5:00 pm on day of admission. Denied sick contacts or recent travel. Reported 1x episode of watery diarrhea on day of admission that was a small amount. Stools prior to this episode were normal. Denied on admission fevers, chills, headaches, dizziness, weakness, body aches, changes in vision, chest pain, palpitations, sob, abd pain, urinary sxs, blood in stool, or recent changes in diet. Pt was admitted for Sepsis / to b/l pyelonephritis and gastroenteritis. GI (Dr. Marcos) was consulted for gastroenteritis. Pt was spiking fevers on admission, given tylenol prn, afebrile since 04/02/18. Pt had leukocytosis on admission, which trended down to wnl by day of discharge. Venous blood gas was done which demonstrated no acidosis and lactate was wnl. Pt had transaminitis and elevated bilirubin on admission, which trended down to wnl. Pt was given IVF on admission and were d/c'd once pt was able to tolerate PO diet well. Acetaminophen level was negative. Lipase and hepatitis panel were wnl. Pt had elevated Procalcitonin of 12, repeat was shown to be trending down U/a on admission was positive for 2+ protein, 2+ blood, 2+ leukocyte esterase, 15 WBC, 15 RBC. Urine cx was negative for growth. Stool cultures and C. diff toxin were negative. Blood cultures /2 on 04/01 were positive for E. coli, sensitive to Meropenem. Repeat blood cultures 04/04 demonstrated no growth. Pt was placed on Zosyn/Flagyl initially, which was later changed to Meropenem as per ID recs (Dr. Cullen). Pt had PICC line placed on 04/07/18 for bed bug exterminator antibiotic therapy. As per ID was discharged on Invanz infusion to complete for the next 7 days outpatient. Had long discussion along with Case Management regarding options for antibiotic treatment once stable. Information was conveyed to patient that she would be required out of pocket to pay for outpatient Invanz infusions. Pt was understanding about course of treatment and stated she would follow-up outpatient for Invanz infusions daily. Appointment was scheduled for patient to follow up at [facility] tomorrow 04/08/18 at 9:00 am for first appointment. Patient received one dose of Invanz treatment inpatient prior to discharge. Patient was discharged to home with PICC line in place. EKG on admission demonstrated NSR with no acute ST-t wave changes. CT abd/pelvis on admission demonstrated b/l pyelonephritis and bladder wall thickening/cystitis. RUQ U/s was negative for acute findings. Abd XR was negative for acute findings. On discharge, patient was also instructed to follow-up with [facility] (Dr. Berry) within 1 week after hospital discharge. Pt was also given script for outpatient labs as per Dr. Cullen and instructed to follow-up with Dr. Cullen within 1 week of discharge to monitor antibiotic treatment response. All questions and concerns were addressed with patient at bedside, and she was agreeable to plan. Was discharged to home in stable condition on 04/07/18. Discharge Exam - Head Exam Head Exam: ATRAUMATIC, NORMOCEPHALIC - Eye Exam Eye Exam: EOMI, Normal appearance, PERRL - ENT Exam ENT Exam: Mucous Membranes Moist - Respiratory Exam Respiratory Exam: Clear to PA & Lateral, NORMAL BREATHING PATTERN, UNREMARKABLE. absent: Rales, Rhonchi, Wheezes - Cardiovascular Exam Cardiovascular Exam: REGULAR RHYTHM, +S1, +S2. absent: Tachycardia, Gallop, Rubs, Systolic Murmur - GI/Abdominal Exam GI & Abdominal Exam: Normal Bowel Sounds, Soft, Unremarkable. absent: Distended, Firm, Guarding, Organomegaly, Rebound, Rigid - Extremities Exam Extremities exam: full ROM, normal capillary refill, normal inspection, pedal pulses present - Back Exam Back exam: FULL ROM, NORMAL INSPECTION. absent: CVA tenderness (L), CVA tenderness (R) - Neurological Exam Neurological exam: Alert, CN II-XII Intact, Normal Gait, Oriented x3, Reflexes Normal - Psychiatric Exam Psychiatric exam: Normal Affect, Normal Mood - Skin Skin Exam: Dry, Intact, Normal Color, Warm Discharge Plan - Discharge Medications Prescriptions: Ertapenem [Invanz] 1 gm IJ DAILY #7 pds Lactobacillus Acidophilus [Bacid Acidophilus] 1 cap PO BID #60 cap - Follow Up Plan Condition: GOOD Disposition: HOME/ ROUTINE Instructions: Ertapenem, Urinary Tract Infection in Women (DC), Sepsis (DC), Dysuria (GEN) Additional Instructions: Please follow up with Dr. Berry ([facility]) within 1 week of hospital discharge. Please follow up with Dr. Cullen (Infectious Disease) within 1 week of discharge. [facility] for daily Invanz antibiotic treat ment to complete for total of 7 days as per ID (Dr. Cullen). 1st appointment to be tomorrow at 9:00 am. Patient received 1 dose of Invanz inpatient today. Please take medications as prescribed. Please follow up for CBC, CMP, ESR, and CRP blood draw at outpatient lab on 04/11/18, patient given script. Should symptoms recur or worsen, please call your primary care physician or report to your nearest emergency department. Referrals: Gaston Cullen MD [Staff Provider] - Keisha Berry MD [Staff Provider] -
== END 2018-04-07 18:51 | disposition home or self-care (01) | DRG 872 ==
LOC: C.ER 19:11 → C.3T 23:33
PROVIDERS: ADMIT Internal Medicine; ATTEND Internal Medicine
PROC: 02HV33Z Insertion of Infusion Device into Superior Vena Cava, Percutaneous Approach (ICD-10-PCS; principal; 2018-04-07)
DX: A41.9 Sepsis, unspecified organism (principal); N10 Acute pyelonephritis; B17.9 Acute viral hepatitis, unspecified; B96.20 Unspecified Escherichia coli [E. coli] as the cause of diseases classified elsewhere; E87.6 Hypokalemia; N30.91 Cystitis, unspecified with hematuria; D64.9 Anemia, unspecified; A08.4 Viral intestinal infection, unspecified; E83.39 Other disorders of phosphorus metabolism